=== PATIENT | female | born 2000 | race Caucasian/White ===

== ENCOUNTER 2022-05-19 17:50 | Day surgery (SDC) | payer MEDICAID, SELFPAY ==
[2022-05-19 17:56] VITALS: BP 120/82; PULSE 84; RESP 18; TEMP 36.7; O2SAT 99; BMI 22.7
--- NOTE | 2022-05-19 19:14 | ED.GENADULT ---
HPI - General Adult General Time Seen by Provider: 19:14 Date Seen: 05/19/22 Chief complaint: Chest Pain Stated complaint: Chest pain, not able to keep anything down Time Seen by Provider: 05/19/22 17:58 Source: patient and RN notes reviewed Mode of arrival: ambulatory Limitations: no limitations History of Present Illness HPI narrative: This 21-year-old female is coming in with some epigastric and chest pain that goes into her back that started about 10:00 a.m. last night. She has not had any fevers or chills but states she has felt shaky at times. She has not had any cough or cold symptoms with this. She does have pain with breathing but is not short of breath per se. She does feel that maybe in front she feels a little short of breath. She vomited twice last night she is not really sure if she just ate a greasy taco. She did have a normal bowel movement today, has been passing gas. Has had some nausea. [id number] pain medicines have not helped. She states it is really more pain that bothering her. No known ill contacts, no recent travel. Related Data Home Medications Medication Instructions Recorded Confirmed No Known Home Medications 05/19/22 05/19/22 Allergies Allergy/AdvReac Type Severity Reaction Status Date / Time No Known Drug Allergies Allergy Verified 05/19/22 17:59 Review of Systems Status of ROS: Reports: 10 or more systems reviewed and unremarkable except as noted in History and below Exam Const: Vital Signs, click to edit/add: Vital Signs - 24 hr 05/19/22 17:56 05/19/22 19:55 05/19/22 19:41 Temperature 98.1 F 98.1 F Pulse Rate [Right Pulse Oximeter] 84 Respiratory Rate 18 Blood Pressure [Ri ght Upper Arm] 120/82 Pulse Oximetry 99 99 Oxygen Delivery Me thod Room Air 05/19/22 21:17 Temperature 98.1 F Pulse Rate [Right Pulse Oximeter] Respiratory Rate Blood Pressure [Ri ght Upper Arm] Pulse Oximetry Oxygen Delivery Me thod Documenting provider has reviewed patient's vital signs: yes Common normals: no apparent distress, average body habitus, oriented x3, no limitations and alert General appearance: cooperative, comfortable, well kempt and well developed Other: 21-year-old female who looks mildly uncomfortable, hanging onto an emesis bag. She is pleasant, looks like she does not feel well but is able to sit up and move around without difficulty. HENMT: Common normals: normocephalic, head/scalp atraumatic, hearing grossly normal bilaterally and external ears normal Head and scalp: normocephalic and atraumatic External ear: external ears normal Eye: Common normals: PERRL, EOMs intact bilaterally, conjunctivae normal and no scleral icterus Conjunctiva: conjunctiva(e) normal Pupil: PERRL Neck & C-Spine: Common normals: full ROM, no lymphadenopathy, supple, no meningeal signs, no JVD and thyroid normal Thyroid: thyroid normal Chest: Common normals: inspection of chest normal and palpation of chest normal Resp: Common normals: normal respiratory effort, no retractions and no use of accessory muscles Other: Lung sounds on the left are certainly clear, here diminished breath sounds on the right posteriorly. Cardio: Common normals: no JVD, regular rate, regular rhythm, S1 normal heart sound, S2 normal heart sound, no gallops, no clicks and no murmurs Rate: regular rate Rhythm: regular rhythm Heart sounds: S1 normal and S2 normal GI: Common normals: Normal to inspection, nondistended, normoactive bowel sounds present, soft to palpation, non-tender, no hepatosplenomegaly and no masses Palpation: soft and no hepatosplenomegaly Back & Pelvis: Common normals: thoracic and lumbar spine normal to inspection and no thoracic nor lumbar tenderness Extremity: Common normals: normal to inspection and full ROM Neuro: Common normals: oriented x3 Sensorium/orientation: alert Meningeal signs: no meningeal signs Psych: Appearance: well kempt Course Course Hospital Course: I certainly wonder about a possible pneumothorax with diminished breath sounds on the right. She could be developing a pneumonia as well. Do not hear any crackles. Will also consider other cardial pulmonary etiologies, possible GI etiologies. I am going to give her 15 mg IV Toradol and see if this helps with any of the pain, will give her 4 mg IV Zofran. She is currently hemodynamically stable on her arrival vitals but will have staff monitor her on pulse oximetry. Reevaluation(s) Reevaluation #1: Patient is seen coming back from the bathroom. She states she is feeling better and had asked nursing staff for crackers and something to drink before going to the bathroom. She reports she is still having pain but it is improved. She feels pain from the epigastric area and radiates through into her back. She is having no urinary symptoms. She and I reviewed the elevated white count, would be concerned that we rule out intra-abdominal pathology. She states that she has had episodes of pain before that she thought was more reflux, never this severe and never lasting this long. I am glad to see that she does feel better but do feel that we should look at a CT of her abdomen pelvis with IV contrast just to ensure no developing pathology that could be a surgical abdomen. If the CT is negative, will recommend trial of proton pump inhibitor and outpatient follow-up. Time: 21:26 Reevaluation #2: Reviewed patient's CT scan. Unfortunately she has common bile duct stone as well as the cystic duct stone. White count is elevated in she is still having pain, it is increased again. I do think that she may have some underlying cholecystitis given the pain in the elevated white count. We are going to see if [facility] has any possibility of taking her in transfer to have the ERCP done, if they cannot, will see if we can get her in to have ERCP done there tomorrow and transferred back here. I do not feel obtaining an ultrasound at this point is going to loom changer, 1 could be done tomorrow if necessary. I am going to start IV fluids, give her pain management. I will give her a dose of antibiotics while we try to sort this out. Time: 23:09 Consultations Consultation #1: Have spoken to our surgeon Dr. Anderson regarding case. Reviewed that my plan would be to obtain ultrasound morning as we really have found no place to transfer her. The [email or web address], [place], [facility] are all full and not accepting patients at this time. Nursing staff will look at some of the further out hospital such as [place]. Thus, GI would likely want to the ultrasound prior to transfer per our surgeon. It is likely that this patient will need to be admitted here and we will need to look at a disposition to see if we can get her to ERCP somewhere tomorrow. In the meantime we will initiate antibiotics with Zosyn, have already ordered the IV fluids and some morphine for pain management. We will keep her NPO. Time: 23:21 Consultation #2: Have spoken with the hospitalist at [facility]. They accept patient. We have been unsuccessful finding any facility to transfer to on her list. [facility] stated that they could not arrange for us to do a transfer for ERCP at this time, we would need to call back during day hours. Time: 00:02 Vital Signs Vital signs: Initial Vital Signs Temperature 98.1 F 05/19/22 17:56 Temperature Source Temporal Artery Scan 05/19/22 17:56 Pulse Rate 84 05/19/22 17:56 Respiratory Rate 18 05/19/22 17:56 Blood Pressure 120/82 05/19/22 17:56 Blood Pressure Mean 94 05/19/22 17:56 Blood Pressure Position Sitting 05/19/22 17:56 Pulse Oximetry 99 05/19/22 17:56 Oxygen Delivery Method 05/19/22 17:56 Vital Signs Temperature 98.1 F 05/19/22 17:56 Pulse Rate 84 05/19/22 17:56 Respiratory Rate 18 05/19/22 17:56 Blood Pressure 120/82 05/19/22 17:56 Pulse Oximetry 99 05/19/22 17:56 Oxygen Delivery Method 05/19/22 17:56 Temperature 98.1 F 05/19/22 21:17 Pulse Rate 84 05/19/22 17:56 Respiratory Rate 18 05/19/22 17:56 Blood Pressure 120/82 05/19/22 17:56 Pulse Oximetry 99 05/19/22 19:41 Oxygen Delivery Method 05/19/22 17:56 Medical Decision Making Lab Data Lab results reviewed: Yes I reviewed the patient's lab results Labs: Lab Results 05/19/22 05/19/22 05/19/22 Range/Units 19:50 19:50 19:50 WBC 14.98 H (4.50-11.00) K/uL RBC 5.35 H (4.00-5.20) m/uL Hgb 14.3 (12.0-16.0) gm/dL Hct 44.6 (33.0-51.0) % MCV 83 (80-100) fL MCH 27 (26-34) pg MCHC 32 (32-36) gm/dL RDW Coeff of [place] 12.8 (11.5-15.5) % Plt Count 358 (140-440) K/uL Neut % (Auto) 80.6 H (42.0-72.0) % Lymph % (Auto) 14.1 L (20-44) % [place] % (Auto) 5.1 (0.0-11.0) % Eos % (Auto) 0.0 (0.0-7.0) % Baso % (Auto) 0.1 (0.0-3.0) % Neut # (Auto) 12.10 H (1.7-7.0) K/uL Lymph # (Auto) 2.10 (0.90-2.90) K/uL [place] # (Auto) 0.80 (0.00-0.90) K/UL Eos # (Auto) 0.00 (0.00-0.50) K/uL Baso # (Auto) 0.00 (0.00-0.30) K/uL Sodium 139 (135-149) mmol/L Potassium 3.9 (3.6-5.1) mmol/L Chloride 106 (96-114) mmol/L Carbon Dioxide 22 (20-32) mmol/L BUN 12 (5-24) mg/dL Creatinine 0.4 L (0.5-1.5) mg/dL Estimated Creat Clear 167.88 Estimated GFR 144 ml/min Glucose 113 (60-115) mg/dL Lactate (0.5-1.9) mmol/L Calcium 9.8 (8.4-10.6) mg/dL Total Bilirubin 0.7 (0.1-1.5) mg/dL AST 27 (12-35) U/L ALT 23 (4-35) U/L Alkaline Phosphatase 70 (40-150) U/L Total Protein 8.7 H (6.0-8.3) g/dL Albumin 5.2 H (3.3-5.0) g/dL Lipase (23-300) U/L SARS-CoV-2 (PCR) Negative SARS-CoV-2 (Negative) Influenza Type A (PCR) Negative PCR FLU A (Negative) Influenza Type B (PCR) Negative PCR FLU B (Negative) RSV (PCR) Negative PCR RSV (Negative) POC Troponin I (0.01-0.04) ng/ml 05/19/22 05/19/22 05/19/22 Range/Units 19:50 19:50 19:50 WBC (4.50-11.00) K/uL RBC (4.00-5.20) m/uL Hgb (12.0-16.0) gm/dL Hct (33.0-51.0) % MCV (80-100) fL MCH (26-34) pg MCHC (32-36) gm/dL RDW Coeff of [place] (11.5-15.5) % Plt Count (140-440) K/uL Neut % (Auto) (42.0-72.0) % Lymph % (Auto) (20-44) % [place] % (Auto) (0.0-11.0) % Eos % (Auto) (0.0-7.0) % Baso % (Auto) (0.0-3.0) % Neut # (Auto) (1.7-7.0) K/uL Lymph # (Auto) (0.90-2.90) K/uL [place] # (Auto) (0.00-0.90) K/UL Eos # (Auto) (0.00-0.50) K/uL Baso # (Auto) (0.00-0.30) K/uL Sodium (135-149) mmol/L Potassium (3.6-5.1) mmol/L Chloride (96-114) mmol/L Carbon Dioxide (20-32) mmol/L BUN (5-24) mg/dL Creatinine (0.5-1.5) mg/dL Estimated Creat Clear Estimated GFR ml/min Glucose (60-115) mg/dL Lactate 1.4 (0.5-1.9) mmol/L Calcium (8.4-10.6) mg/dL Total Bilirubin (0.1-1.5) mg/dL AST (12-35) U/L ALT (4-35) U/L Alkaline Phosphatase (40-150) U/L Total Protein (6.0-8.3) g/dL Albumin (3.3-5.0) g/dL Lipase 60 (23-300) U/L SARS-CoV-2 (PCR) (Negative) Influenza Type A (PCR) (Negative) Influenza Type B (PCR) (Negative) RSV (PCR) (Negative) POC Troponin I 0.00 L (0.01-0.04) ng/ml Imaging Data Chest x-ray: Attestation: I have reviewed the pertinent imaging results. My impression: I certainly do not see pneumothorax, no acute infiltrate. Will await Radiology over review as well. Radiologist's impression: Patient: ANNMARIE ALMENDAREZ Facility:?[facility] Patient ID:?[id number] Site Patient ID:?[id number]. Site :?[id number] Study:?XRay Chest -05/19/2022 8:32:29 PM Ordering Physician:?Forest Eaton Final Report: INDICATION: Chest pain. TECHNIQUE: Chest 1 views. COMPARISON: None. FINDINGS: Cardiovascular and mediastinum: Cardiomediastinal silhouette is within normal limits. Lungs and pleural spaces: Lungs are clear. No sign of pleural effusion. No pneumothorax. Bones and soft tissues: No significant findings. IMPRESSION: No acute cardiopulmonary process identified. Dictated by Malou Gann MD @ 05/19/2022 8:33:03 PM (Electronic Signature) CT scan - abdomen: Attestation: I have reviewed the pertinent imaging results. Radiologist's impression: Patient: ANNMARIE ALMENDAREZ Facility:?[facility] Patient ID:?[id number] Site Patient ID:?[id number]. Site :?[id number] Study:?CT Abdomen/Pelvis W ISOVUE 370-05/19/2022 10:43:09 PM Ordering Physician:?Forest Eaton Final Report: INDICATION: Epigastric TECHNIQUE: CT abdomen and pelvis acquired with 58 cc Isovue 370 IV contrast. COMPARISON: None. FINDINGS: Lower chest: The visualized lower lungs are aerated. No pleural or pericardial effusion. ABDOMEN: Liver: Normal enhancement. No focal suspicious hepatic lesions. Gallbladder and biliary: Normal gallbladder without radiopaque stone. Mild prominence of the intra and extrahepatic bile ducts with punctate high attenuation foci within the common bile duct and potentially within the distal-most aspect of the cystic duct, axial images 24-32. Spleen: Normal size and enhancement. Pancreas: Normal enhancement without peripancreatic inflammatory changes or ductal dilatation. Adrenal glands: Normal adrenal glands. Kidneys and ureters: Normal enhancement. No radio-opaque calculi. No hydroureteronephrosis. GI tract: The stomach is relatively decompressed. Normal caliber small and large bowel loops. Normal appendix. Vascular structures: Normal caliber abdominal aorta. Lymph nodes: No lymphadenopathy in the abdomen or pelvis by size criteria. Peritoneum: No free air, free fluid, or focal drainable fluid collection. PELVIS: Genitourinary system: Urinary bladder is decompressed. Appropriately positioned IUD. Bilateral ovarian cysts. SKELETAL STRUCTURES AND SOFT TISSUES: No suspicious lytic or blastic lesions. IMPRESSION: Mild prominence of the intra and extrahepatic bile ducts with punctate high attenuation foci within the common bile duct and potentially within the distal-most aspect of the cystic duct. Findings likely reflect choledocholithiasis and potentially cholelithiasis with stone in the cystic duct. Please note that all CT scans at this facility use dose modulation, iterative reconstruction, and/or weight-based dosing when appropriate to reduce radiation dose to as low as reasonably achievable. Dictated by Indio Hilliard MD @ 05/19/2022 10:55:27 PM (Electronic Signature) ECG Data Attestation: I personally reviewed and interpreted this ECG as follows: (Sinus rhythm with sinus arrhythmia, 73 beats per minute. No acute ischemic change, no no changes concerning for pericarditis. QT corrected 429 milliseconds.) Prior ECG tracings: not available for review Critical Care Time Critical Care Time Critical Care Time: No Discharge Plan Discharge Clinical Impression: Choledocholithiasis, Acute cholecystitis Patient Disposition: Admitted As Inpatient Condition: Unchanged Prescriptions: No Action No Known Home Medications Follow Up/Referrals: Hanna Worley MD [Primary Care Provider] -
[2022-05-19 19:41] VITALS: O2SAT 99
--- NOTE | 2022-05-19 19:41 | CRLHL7_ITS ---
For Patients: As a result of the Cures Act, medical imaging exams and procedure reports are released immediately into your electronic medical record. You may view this report before your referring provider. If you have questions, please contact your health care provider. INDICATION: Chest pain. TECHNIQUE: Chest 1 views. COMPARISON: None. FINDINGS: Cardiovascular and mediastinum: Cardiomediastinal silhouette is within normal limits. Lungs and pleural spaces: Lungs are clear. No sign of pleural effusion. No pneumothorax. Bones and soft tissues: No significant findings. IMPRESSION: No acute cardiopulmonary process identified. Dictated by Malou Gann MD @ 05/19/2022 8:33:03 PM (Electronically Signed)
[2022-05-19 19:55] VITALS: TEMP 36.7
[2022-05-19] MEDS: KETOROLAC 15 MG/ML inj IVP (19:55)
[2022-05-19] MEDS: ONDANSETRON 2 MG/ML inj 4 MG IVP (19:55)
[2022-05-19 20:02] LABS: Lactate* 1.4 mmol/L (0.5-1.9)
[2022-05-19 20:05] LABS: Basophils Percent Auto 0.1 % (0.0-3.0); Hematocrit 44.6 % (33.0-51.0); Hemoglobin* 14.3 gm/dL (12.0-16.0); Immature Granulocytes Pct Auto 0.1 %; Lymphocytes Percent Auto 14.1 % (20-44); Mean Corpuscular HGB Conc 32 gm/dL (32-36); Mean Corpuscular Hemoglobin 27 pg (26-34); Mean Corpuscular Volume 83 fL (80-100); Monocytes Percent Auto 5.1 % (0.0-11.0); Neutrophils Percent Auto 80.6 % (42.0-72.0); Platelet Count* 358 K/uL (140-440); RDW Coefficient of Variation % 12.8 % (11.5-15.5); Red Blood Count 5.35 m/uL (4.00-5.20); White Blood Count* 14.98 K/uL (4.50-11.00)
[2022-05-19 20:11] LABS: Slide Review Reflex No
[2022-05-19 20:19] LABS: Albumin* 5.2 g/dL (3.3-5.0); Chloride* 106 mmol/L (96-114); Potassium* 3.9 mmol/L (3.6-5.1); Sodium* 139 mmol/L (135-149)
[2022-05-19 20:21] LABS: Creatinine* 0.4 mg/dL (0.5-1.5); Est. Creatinine Clearance* 167.88; Estimated Glomerular Filt Rate 144 ml/min
[2022-05-19 20:22] LABS: Alanine Aminotransferase* 23 U/L (4-35); Alkaline Phosphatase* 70 U/L (40-150); Aspartate Amino Transferase* 27 U/L (12-35); Bilirubin Total* 0.7 mg/dL (0.1-1.5); Blood Urea Nitrogen* 12 mg/dL (5-24); Calcium* 9.8 mg/dL (8.4-10.6); Carbon Dioxide* 22 mmol/L (20-32); Glucose* 113 mg/dL (60-115); Total Protein* 8.7 g/dL (6.0-8.3)
[2022-05-19 20:42] LABS: PCR FLU A Negative PCR FLU A (Negative); PCR FLU B Negative PCR FLU B (Negative); PCR RSV Negative PCR RSV (Negative)
[2022-05-19 20:46] LABS: Lipase* 60 U/L (23-300)
[2022-05-19 20:47] LABS: SARS PCR* Negative SARS-CoV-2 (Negative)
[2022-05-19 21:17] VITALS: TEMP 36.7
--- NOTE | 2022-05-19 21:25 | CRLHL7_ITS ---
For Patients: As a result of the Century Cures Act, medical imaging exams and procedure reports are released immediately into your electronic medical record. You may view this report before your referring provider. If you have questions, please contact your health care provider. INDICATION: Epigastric TECHNIQUE: CT abdomen and pelvis acquired with 58 cc Isovue 370 IV contrast. COMPARISON: None. FINDINGS: Lower chest: The visualized lower lungs are aerated. No pleural or pericardial effusion. ABDOMEN: Liver: Normal enhancement. No focal suspicious hepatic lesions. Gallbladder and biliary: Normal gallbladder without radiopaque stone. Mild prominence of the intra and extrahepatic bile ducts with punctate high attenuation foci within the common bile duct and potentially within the distal-most aspect of the cystic duct, axial images 24-32. Spleen: Normal size and enhancement. Pancreas: Normal enhancement without peripancreatic inflammatory changes or ductal dilatation. Adrenal glands: Normal adrenal glands. Kidneys and ureters: Normal enhancement. No radio-opaque calculi. No hydroureteronephrosis. GI tract: The stomach is relatively decompressed. Normal caliber small and large bowel loops. Normal appendix. Vascular structures: Normal caliber abdominal aorta. Lymph nodes: No lymphadenopathy in the abdomen or pelvis by size criteria. Peritoneum: No free air, free fluid, or focal drainable fluid collection. PELVIS: Genitourinary system: Urinary bladder is decompressed. Appropriately positioned IUD. Bilateral ovarian cysts. SKELETAL STRUCTURES AND SOFT TISSUES: No suspicious lytic or blastic lesions. IMPRESSION: Mild prominence of the intra and extrahepatic bile ducts with punctate high attenuation foci within the common bile duct and potentially within the distal-most aspect of the cystic duct. Findings likely reflect choledocholithiasis and potentially cholelithiasis with stone in the cystic duct. Please note that all CT scans at this facility use dose modulation, iterative reconstruction, and/or weight-based dosing when appropriate to reduce radiation dose to as low as reasonably achievable. Dictated by Indio Hilliard MD @ 05/19/2022 10:55:27 PM (Electronically Signed)
--- NOTE | 2022-05-19 23:19 | US_ITS ---
Patient: ANNMARIE ALMENDAREZ Facility:?[facility] Patient ID:?[id number] Site Patient ID:?[id number]. Site :?2000 Study:?US-Abdomen -05/20/2022 12:26:56 AM Ordering Physician:?UNKNOWN UNKNOWN Final Report: INDICATION: Abdominal gallbladder pain TECHNIQUE: Ultrasound abdomen limited. Sonographic images of the gallbladder and biliary tree were obtained using mari-scale and color Doppler images. COMPARISON: CT 05/19/2022 FINDINGS: Liver: The liver parenchyma is normal in echotexture. Gallbladder: Multiple echogenic, shadowing gallstones are seen clustered in the gallbladder neck. The gallbladder wall is normal in appearance. No pericholecystic fluid is present. No sonographic Malin?s sign is present. Common bile duct: 5 mm. There is a 1 cm echogenic focus present within the common bile duct, consistent with choledocholithiasis. Vascular: Proximal abdominal aorta and IVC are not demonstrated. IMPRESSIONS: 1. Multiple echogenic, shadowing gallstones are seen clustered in the gallbladder neck. 2. There is a 1 cm echogenic focus present within the common bile duct, consistent with choledocholithiasis. Dictated by Eze Montana MD @ 05/20/2022 12:49:02 AM Dictated by: Eze Montana MD @ 05/20/2022 00:49:11 Signed by:?Eze Montana MD @05/20/2022 12:49:11 AM (Electronic Signature)
[2022-05-19] MEDS: PIPERACILLIN/TAZOBACTAM 3.375 GM in 0.9 % SODIUM CHLORIDE Mini-bag 100 ML IVPB (23:55)
[2022-05-19] MEDS: MORPHINE 2 MG/ML inj IVP (23:56)
[2022-05-20] VITALS (21 sets, daily range): BP systolic 85–124; BP diastolic 49–79; PULSE 54–83; RESP 10–18; TEMP 35.7–37.2; O2SAT 94–100; BMI 20.1
--- NOTE | 2022-05-20 01:28 | PM.IMCN1 ---
Date of Consult Consult date: 05/20/22 Primary Care Provider: Hanna Worley MD Consult Narrative Narrative: Erin Miller is a 21 year old female [facility] Medical History (Updated 05/20/22 @ 00:42 by Sekou Bingham RN) No significant past medical history Surgical History (Updated 05/20/22 @ 00:42 by Sekou Bingham RN) No significant past surgical history Social History Smoking Status: Never smoker Do you use any of these nicotine containing products: None Second hand tobacco smoke exposure: No How often do you have a drink containing alcohol: never How often do you have six or more drinks on one occasion: Never AUDIT-C Alcohol total score: 0 Non-prescribed substance use: denies use Meds Home Medications and Allergies Home Medications Medication Instructions Recorded Confirmed Type No Known Home Medications 05/19/22 05/19/22 History Allergies Allergy/AdvReac Type Severity Reaction Status Date / Time No Known Drug Allergies Allergy Verified 05/19/22 17:59 Exam Const: Vital Signs, click to edit/add: Vital Signs - 24 hr 05/19/22 17:56 05/19/22 19:55 05/19/22 19:41 Temperature 98.1 F 98.1 F Pulse Rate Pulse Rate [Right Pulse Oximeter] 84 Respiratory Rate 18 Blood Pressure Blood Pressure [Ri ght Upper Arm] 120/82 Pulse Oximetry 99 99 Oxygen Delivery Me thod Room Air 05/19/22 21:17 05/20/22 00:44 05/20/22 00:44 Temperature 98.1 F 98.1 F 98.2 F Pulse Rate 74 Pulse Rate [Right Pulse Oximeter] 74 Respiratory Rate 18 16 Blood Pressure 124/68 Blood Pressure [Ri ght Upper Arm] 124/68 Pulse Oximetry 99 99 Oxygen Delivery Me thod Room Air Room Air 05/20/22 00:46 05/20/22 01:10 Temperature 98.2 F Pulse Rate Pulse Rate [Right Pulse Oximeter] 74 Respiratory Rate 16 16 Blood Pressure Blood Pressure [Ri ght Upper Arm] 124/68 Pulse Oximetry 99 Oxygen Delivery Me thod Room Air Labs Labs: Short CBC 05/19/22 Range/Units 19:50 WBC 14.98 H (4.50-11.00) K/uL Hgb 14.3 (12.0-16.0) gm/dL Hct 44.6 (33.0-51.0) % Plt Count 358 (140-440) K/uL BMP 05/19/22 19:50 Sodium 139 Potassium 3.9 Chloride 106 Carbon Dioxide 22 BUN 12 Creatinine 0.4 L Glucose 113 Calcium 9.8 Liver Function 05/19/22 Range/Units 19:50 Total Bilirubin 0.7 (0.1-1.5) mg/dL AST 27 (12-35) U/L ALT 23 (4-35) U/L Alkaline Phosphatase 70 (40-150) U/L Albumin 5.2 H (3.3-5.0) g/dL Assessment and Plan Assessment and plan (1) Acute cholecystitis: Status: Acute Plan [facility] Hospitalist CONSULTATION NOTE: Reason for consult: Right upper quadrant pain, concern for cholecystitis HPI: Patient is a pleasant 21-year-old female without any significant past medical history presents for 2 days of worsening abdominal pain. She is also had loss of appetite and some nausea and vomiting. She has had at least 3 episodes of vomiting. She has not had any diarrhea. She did not have any fevers or chills she is aware. She denies headache or lightheadedness. The pain does radiate up into her chest and back at times. She also does have a little bit of shortness of breath as she is unable to take deep inspiration secondary to pain. Patient does not have any allergies. She does not smoke cigarettes or use nicotine. She drinks alcohol around once a month. She does not use any recreational drugs. She is unaware of any family history of gallstones or gallbladder disease. Exam (performed via interactive video with assistance of bedside nurse): General: Alert, cooperative, no acute distress HEENT: Pupils reported ERRL, oral mucosa pink and moist without erythema Lungs: Clear to auscultation bilaterally without crackle or wheeze CV: Regular rate and rhythm without loud murmur rub or gallop Abd: Tender to palpation bilateral upper quadrants Ext: No pitting edema noted Skin: No rashes, bruises or lesions appreciated on gross visualization of exposed skin Past medical, surgical and social history reviewd in EMR. Assessment and Plan: 1. Abdominal pain concern for cholecystitis Patient is a pleasant 21-year-old female admitted for abdominal pain and ductal dilation. No gallstones were identified but gallbladder ultrasound is pending. There was noted ductal dilation on CT scan. Zosyn was started in the ER and will be continued in case patient is having early cholecystitis. Patient would benefit from ERCP, but no facility with ERCP capable debilities had any available beds. PRNs will be available for pain and nausea. Patient is full code. Thank you for including Adi Pichardoist in the patients care. This service is available for further assistance as requested by your care team by calling [phone].
[2022-05-20] MEDS: PIPERACILLIN/TAZOBACTAM 3.375 GM in 0.9 % SODIUM CHLORIDE Mini-bag 100 ML IVPB ×2 (06:00→13:40)
[2022-05-20] MEDS: 0.9 % SODIUM CHLORIDE 250 ml IV (06:01)
--- NOTE | 2022-05-20 06:40 | PC.NURSE ---
2307: pt to floor at 0030. No c/o pain. No c/o nausea. VSS. LLQ tender to palpation.
[2022-05-20] MEDS: LACTATED RINGERS 1000 ML 500 ML IV ×2 (08:00→15:00)
--- NOTE | 2022-05-20 08:47 | P.GSCN_ITS ---
History of Present Illness Consult details Date Seen: 05/20/22 Consult date: 05/20/22 Narrative: 21-year-old female admitted to the hospital with choledocholithiasis and I was asked by Dr. Oreilly to see her in consultation. Patient presented to the emergency room yesterday. She states that her upper abdominal pain and chest pain started on Monday evening after eating dinner. Patient had tacos and donuts for dinner. The pain was persistent and sharp. Patient had similar episodes of pain that were milder in the past. She was seen twice in the emergency room for similar symptoms and her symptoms were attributed to acid reflux. Patient vomited 3 times yesterday. She was passing gas yesterday and had a bowel movement yesterday as well. In the emergency room she was found to have elevated WBC at 14.6. Her liver function tests were normal and her lipase was normal. An abdominal CT was obtained that showed normal appearance of the gallbladder with a stone in the common bile duct with prominent intra and extrahepatic bile duct dilatation. There was also a small stone in the mid distal cystic duct. Patient also had a gallbladder ultrasound that showed gallbladder wall of 3 mm. The common bile duct size varied from 4-10 mm. There was no evidence of cholecystic fluid. 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 Highest level of school completed/degree received: high school graduate Smoking Status: Never smoker Do you use any of these nicotine containing products: None Second hand tobacco smoke exposure: No How often do you have a drink containing alcohol: monthly or less How often do you have six or more drinks on one occasion: Never AUDIT-C Alcohol total score: 1 Non-prescribed substance use: denies use Caffeine: No service: No Meds Home Medications and Allergies Home Medications Medication Instructions Recorded Confirmed Type No Known Home Medications 05/19/22 05/19/22 History Allergies Allergy/AdvReac Type Severity Reaction Status Date / Time No Known Drug Allergies Allergy Verified 05/19/22 17:59 Exam Narrative: Exam Narrative: General appearance: Alert, cooperative, and in no distress Pulmonary: Chest symmetric, lungs clear bilaterally Cardiovascular Heart: Regular rate and rhythm, S1, S2, no murmurs/rubs/gallops Gastrointestinal Abdominal: soft, not distended, tender to palpation in epigastrium and right upper quadrant with negative Malin sign. Skin: Normal skin color, texture, and turgor. No rashes or lesions. Psychiatric: Alert, cooperative, normal affect. Const: Vital Signs, click to edit/add: Vital Signs - 24 hr 05/19/22 17:56 05/19/22 19:55 05/19/22 19:41 Temperature 98.1 F 98.1 F Pulse Rate Pulse Rate [Pulse Oximeter] Pulse Rate [Right Pulse Oximeter] 84 Respiratory Rate 18 Blood Pressure Blood Pressure [Le ft Arm] Blood Pressure [Ri ght Upper Arm] 120/82 Pulse Oximetry 99 99 Oxygen Delivery Me thod Room Air 05/19/22 21:17 05/20/22 00:44 05/20/22 00:44 Temperature 98.1 F 98.1 F 98.2 F Pulse Rate 74 Pulse Rate [Pulse Oximeter] Pulse Rate [Right Pulse Oximeter] 74 Respiratory Rate 18 16 Blood Pressure 124/68 Blood Pressure [Le ft Arm] Blood Pressure [Ri ght Upper Arm] 124/68 Pulse Oximetry 99 99 Oxygen Delivery Me thod Room Air Room Air 05/20/22 00:46 05/20/22 01:10 05/20/22 01:10 Temperature 98.2 F 97.7 F Pulse Rate Pulse Rate [Pulse Oximeter] 70 Pulse Rate [Right Pulse Oximeter] 74 Respiratory Rate 16 16 16 Blood Pressure Blood Pressure [Le ft Arm] 109/68 Blood Pressure [Ri ght Upper Arm] 124/68 Pulse Oximetry 99 99 Oxygen Delivery Me thod Room Air Room Air Results Labs Labs: Abnormal lab results 05/19/22 05/19/22 05/19/22 Range/Units 19:50 19:50 19:50 WBC 14.98 H (4.50-11.00) K/uL RBC 5.35 H (4.00-5.20) m/uL Neut % (Auto) 80.6 H (42.0-72.0) % Lymph % (Auto) 14.1 L (20-44) % Neut # (Auto) 12.10 H (1.7-7.0) K/uL Creatinine 0.4 L (0.5-1.5) mg/dL Total Protein 8.7 H (6.0-8.3) g/dL Albumin 5.2 H (3.3-5.0) g/dL POC Troponin I 0.00 L (0.01-0.04) ng/ml Diabetes panel 05/19/22 Range/Units 19:50 Sodium 139 (135-149) mmol/L Potassium 3.9 (3.6-5.1) mmol/L Chloride 106 (96-114) mmol/L Carbon Dioxide 22 (20-32) mmol/L BUN 12 (5-24) mg/dL Creatinine 0.4 L (0.5-1.5) mg/dL Glucose 113 (60-115) mg/dL Calcium 9.8 (8.4-10.6) mg/dL AST 27 (12-35) U/L ALT 23 (4-35) U/L Alkaline Phosphatase 70 (40-150) U/L Total Protein 8.7 H (6.0-8.3) g/dL Albumin 5.2 H (3.3-5.0) g/dL Calcium panel 05/19/22 Range/Units 19:50 Calcium 9.8 (8.4-10.6) mg/dL Albumin 5.2 H (3.3-5.0) g/dL Pituitary panel 05/19/22 Range/Units 19:50 Sodium 139 (135-149) mmol/L Potassium 3.9 (3.6-5.1) mmol/L Chloride 106 (96-114) mmol/L Carbon Dioxide 22 (20-32) mmol/L BUN 12 (5-24) mg/dL Creatinine 0.4 L (0.5-1.5) mg/dL Glucose 113 (60-115) mg/dL Calcium 9.8 (8.4-10.6) mg/dL Adrenal panel 05/19/22 Range/Units 19:50 Sodium 139 (135-149) mmol/L Potassium 3.9 (3.6-5.1) mmol/L Chloride 106 (96-114) mmol/L Carbon Dioxide 22 (20-32) mmol/L BUN 12 (5-24) mg/dL Creatinine 0.4 L (0.5-1.5) mg/dL Glucose 113 (60-115) mg/dL Calcium 9.8 (8.4-10.6) mg/dL Total Bilirubin 0.7 (0.1-1.5) mg/dL AST 27 (12-35) U/L ALT 23 (4-35) U/L Alkaline Phosphatase 70 (40-150) U/L Total Protein 8.7 H (6.0-8.3) g/dL Albumin 5.2 H (3.3-5.0) g/dL All other labs normal. Assessment and Plan Assessment and plan (1) Choledocholithiasis: Status: Acute Plan 21-year-old female admitted to the hospital with abdominal pain that is most likely due to choledocholithiasis. I discussed with the patient and her fiance her laboratory and imaging findings. Patient's liver function tests are actually normal. However, she has dilated common bile duct on the ultrasound with a stone visualized on the ultrasound and CT. That dilation of the common bile duct is up to 10 mm. I think this patient would benefit from ERCP first followed by laparoscopic cholecystectomy. Attempts were made at transferring the patient from the emergency room yesterday however there are no beds available at tertiary centers. I would recommend working on transfer for ERCP. Patient could come back after her ERCP and we would plan laparoscopic cholecystectomy. For now will continue NPO, IV fluids, and IV antibiotics.
--- NOTE | 2022-05-20 09:19 | CRLHL7_ITS ---
For Patients: As a result of the Century Cures Act, medical imaging exams and procedure reports are released immediately into your electronic medical record. You may view this report before your referring provider. If you have questions, please contact your health care provider. Indication: Abdominal pain and common duct stone seen on ultrasound. Technique: Multiplanar multisequence images were obtained with heavily weighted T2 sequences for the MRCP. Comparison: Abdomen and pelvis CT 05/19/2022 and right upper quadrant ultrasound 05/20/2022 Findings: Biliary: The gallbladder is distended with cholelithiasis, gallbladder wall thickening as well as pericholecystic edema note is made of a markedly tortuous cystic duct with numerous stones within the cystic duct as well as the neck of the gallbladder (series 14, image 51). The common duct measures 3 millimeters with no choledocholithiasis seen. Liver: Unremarkable. Pancreas: Unremarkable. Spleen: Unremarkable. Adrenal glands: Unremarkable. Kidneys: Unremarkable. Bowel: Unremarkable. Impression: 1. Cholelithiasis with gallbladder wall thickening and pericholecystic edema consistent with acute cholecystitis. 2. Normal common duct without choledocholithiasis. Notably, the cystic duct is quite redundant with multiple stones throughout the cystic duct and neck of the gallbladder. Considering the prior studies, the choledocholithiasis questioned on the prior examination represented stones within a tortuous, dilated cystic duct. Results called to Dr. Oreilly at 1257 on 05/20/2022 Dictated by Alex Rios MD @ 05/20/2022 12:58:07 PM (Electronically Signed)
[2022-05-20] MEDS: LACTATED RINGERS 1000 ML 1,000 ML 100 ML IV ×3 (14:32→19:41)
--- NOTE | 2022-05-20 14:39 | P.IMHP_ITS ---
Hospitalist- H&P: HPI History of Present Illness Date Seen: 05/20/22 Chief complaint: Chest pain, not able to keep anything down Narrative: Erin Miller is a 21 year old female admitted to the hospital with epigastric pain radiating straight to her back starting Monday night, 2 days ago. Pain persisted so she came to the emergency room last night for evaluation. She has had vomiting. She has eaten very little in the last 2 days. No change in her stools. No fever. No shortness of breath. Evaluation showed that she had gallstones. There was concern over a common duct stone as well. Attempts were made to transfer her for ERCP or unsuccessful. Further evaluation here included MRCP which showed no common duct stone but multiple gallstones including in the cystic duct and evidence of cholecystitis. She was seen in consultation by Dr. Anderson. She had a previous episodes similar to this a year ago that was diagnosed as reflux. He has otherwise not had significant ongoing problems with epigastric pain. Review of Systems Narrative: She reports no other health concerns recently. [facility] Medical History No significant past medical history Surgical History No significant past surgical history Social History (Updated 05/20/22 @ 14:43 by Marcelo Oreilly MD) Narrative: Family history: No family history of problems with bleeding, clotting or difficulties with anesthesia. Her father has diabetes mellitus. Her younger sister had leukemia. As a sequelae of her leukemia treatment she developed heart failure and received a heart transplant. She does not smoke. She drinks alcohol twice a month. She has no recreational drug use. Her fiancee, Benton, is healthcare power of traffic law attorney. Code status is full. 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 Highest level of school completed/degree received: high school graduate Smoking Status: Never smoker Do you use any of these nicotine containing products: None Second hand tobacco smoke exposure: No How often do you have a drink containing alcohol: monthly or less How often do you have six or more drinks on one occasion: Never AUDIT-C Alcohol total score: 1 Non-prescribed substance use: denies use Caffeine: No service: No Meds Home Medications and Allergies Home Medications Medication Instructions Recorded Confirmed Type No Known Home Medications 05/19/22 05/19/22 History Allergies Allergy/AdvReac Type Severity Reaction Status Date / Time No Known Drug Allergies Allergy Verified 05/19/22 17:59 Exam Narrative: Exam Narrative: She is alert and appears in no distress. Eyes normal. Oropharynx normal. Neck is supple without mass or adenopathy. Respirations are clear to auscultation. Cardiovascular: S1, S2, regular rate and rhythm. No murmur gallop or rub. Abdomen: Bowel sounds active. Abdomen is soft with mild right upper quadrant tenderness. No mass. No peritonitis. Extremities without edema. Good peripheral pulses. Intact sensation. Good capillary refill. No edema. Const: Vital Signs, click to edit/add: Vital Signs - 24 hr 05/19/22 17:56 05/19/22 19:55 05/19/22 19:41 Temperature 98.1 F 98.1 F Pulse Rate Pulse Rate [Pulse Oximeter] Pulse Rate [Right Pulse Oximeter] 84 Respiratory Rate 18 Blood Pressure Blood Pressure [Le ft Arm] Blood Pressure [Ri ght Upper Arm] 120/82 Pulse Oximetry 99 [facility] 05/[facility]/22 21:17 05/20/22 00:44 05/20/22 00:44 Temperature 98.1 F 98.1 F 98.2 F Pulse Rate 74 Pulse Rate [Pulse Oximeter] Pulse Rate [Right Pulse Oximeter] 74 Respiratory Rate 18 16 Blood Pressure 124/68 Blood Pressure [Le ft Arm] Blood Pressure [Ri ght Upper Arm] 124/68 Pulse Oximetry 99 99 [facility] Room Air 05/20/22 00:46 05/20/22 01:10 05/20/22 01:10 Temperature 98.2 F 97.7 F Pulse Rate Pulse Rate [Pulse Oximeter] 70 Pulse Rate [Right Pulse Oximeter] 74 Respiratory Rate 16 16 16 Blood Pressure Blood Pressure [Le ft Arm] 109/68 Blood Pressure [Ri ght Upper Arm] 124/68 Pulse Oximetry 99 99 [facility] Room Air 05/20/22 07:45 05/20/22 07:45 05/20/22 11:15 Temperature 97 F L 97.7 F Pulse Rate Pulse Rate [Pulse Oximeter] 79 79 83 Pulse Rate [Right Pulse Oximeter] Respiratory Rate 16 16 16 Blood Pressure Blood Pressure [Le ft Arm] 104/79 98/65 Blood Pressure [Ri ght Upper Arm] Pulse Oximetry 98 97 Oxygen Delivery Me thod Room Air Room Air Documenting provider has reviewed patient's vital signs: yes Hospitalist - H&P: Result Labs Labs: Short CBC 05/19/22 Range/Units 19:50 WBC 14.98 H (4.50-11.00) K/uL Hgb 14.3 (12.0-16.0) gm/dL Hct 44.6 (33.0-51.0) % Plt Count 358 (140-440) K/uL BMP 05/19/22 19:50 Sodium 139 Potassium 3.9 Chloride 106 Carbon Dioxide 22 BUN 12 Creatinine 0.4 L Glucose 113 Calcium 9.8 Liver Function 05/19/22 Range/Units 19:50 Total Bilirubin 0.7 (0.1-1.5) mg/dL AST 27 (12-35) U/L ALT 23 (4-35) U/L Alkaline Phosphatase 70 (40-150) U/L Albumin 5.2 H (3.3-5.0) g/dL Assessment and Plan Assessment and plan (1) Acute cholecystitis: Problem comment: Abdomen and pelvis CT, ultrasound show gallstones and possible common duct stone. MRCP confirms no common duct stone and no common duct dilation. Plan laparoscopic cholecystectomy Status: Acute Plan Laparoscopic cholecystectomy. Total time spent today is 75 minutes, 50 minutes in coordination of care with imaging and other specialists and in discussing with patient and fiancee diagnosis and management of cholecystitis
--- NOTE | 2022-05-20 14:53 | PC.NURSE ---
VSS AND AFEBRILE. PATIENT HAS DENIED PAIN OR N/V. NPO PRIOR TO SURGERY. BOWEL SOUNDS ACTIVE AND PATIENT IS PASSING GAS. PATIENT REPORTS LAST MENSTRUAL CYCLE WAS LAST MONTH BUT SHE IS ON CONTROL AND HER MENSES HAS BEEN ERRATIC. MD UPDATED AND PLAN TO HAVE SERUM HCG DRAWN PRIOR TO SURGERY.
[2022-05-20 15:55] LABS: HCG Qualitative Serum* Negative (Negative)
[2022-05-20] MEDS: CEFAZOLIN 1 GM inj IVP (17:12)
--- NOTE | 2022-05-20 17:17 | CRLHL7_ITS ---
For Patients: As a result of the Century Cures Act, medical imaging exams and procedure reports are released immediately into your electronic medical record. You may view this report before your referring provider. If you have questions, please contact your health care provider. INDICATION: Cholecystectomy. Intraoperative cholangiogram. TECHNIQUE: Fluoroscopic guided intraoperative cholangiogram. COMPARISON: Correlation is made with an abdomen ultrasound May 20, 2022. Correlation is made with an abdomen MRI May 20, 2022. FINDINGS: Two spot images were obtained of the right upper quadrant at the time of a cholecystectomy and intraoperative cholangiogram. This is an extremely limited study. There appears to be opacification of the cystic duct with filling defects indicating stones. These were described on the MRI May 20, 2022. Surgical clips right upper quadrant from a cholecystectomy. Probable extravasation of contrast along the undersurface of the liver. Clinical correlation and further imaging evaluation may be required. 55.1 seconds fluoroscopy time utilized. IMPRESSION: 1. Very limited intraoperative examination. 2. 55.1 seconds fluoroscopy time utilized intraoperatively. 3. Filling defects within the cystic duct compatible with stones. Please see abdominal MRI May 20, 2022. 4. Extravasation of contrast along the undersurface of the liver. Dictated by Hemal Seaman MD @ 05/21/2022 8:55:15 AM (Electronically Signed)
[2022-05-20] MEDS: BUPIVACAINE 0.5% 30 ML 10 ML INJECTION (17:24)
[2022-05-20] MEDS: LIDOCAINE 0.5%-EPI 1:200,000 50 ML VIAL 10 ML INJECTION (17:24)
[2022-05-20] MEDS: IOPAMIDOL 50 ML VIAL INJECTION (18:19)
--- NOTE | 2022-05-20 19:32 | P.GSOP_ITS ---
Operative Note Date of procedure: 05/20/22 Pre-op diagnosis: 1. Symptomatic cholelithiasis with possible choledocholithiasis. 2. Acute cholecystitis. Post-op diagnosis: 1. Acute cholecystitis with gallbladder hydrops. 2. Tortuous cystic duct containing multiple stones. Type of Procedure: 1. Laparoscopic cholecystectomy with intraoperative cholangiogram. Indications: 21-year-old female was admitted to the hospital with right upper quadrant pain that started 2 days ago. Patient had vomiting but no nausea. Patient had similar episodes in the past that resolved spontaneously. In the emergency room patient was found to have minimally elevated WBC. An abdominal CT was obtained that showed possible stone in the common bile duct and mid cystic duct. A gallbladder ultrasound was obtained that showed that patient's common bile duct was dilated up to 10 mm and there were stones in the cystic duct. However patient's liver function tests were normal. MRCP was obtained next that showed no choledocholithiasis. The cystic duct was tortuous and redundant with multiple stones in the cystic duct as well as acute cholecystitis. On clinical exam patient had tenderness to palpation in epigastrium and right upper quadrant with negative Malin sign. Given patient's clinical history and her physical exam, acute cholecystitis, biliary colic and possible choledocholithiasis were suspected, and laparoscopic cholecystectomy with intraoperative cholangiogram was recommended. The procedure was discussed in detail. The risks associated procedure including infection, bleeding, injury to intra-abdominal organs, and possible need for future ERCP were all discussed with the patient, and patient agreed to proceed. Procedure Description: After discussing the risks and benefits of the procedure, the patient signed informed consent.? The operative site was marked and the patient was brought to the operating room and placed on the operating table in supine position.? Care was taken to pad the patient's pressure points.?? The patient was then intubated by anesthesia.?? The operative site was then prepped and draped in the usual sterile fashion.? A time-out was then performed. A 5-mm laparoscopy port was placed in the left upper quadrant guided by a 5-mm laparoscope placed into a translucent trochar. The abdominal wall layers were very difficult to divide and decision was made to proceed with Hinojosa technique. Local anesthetic was injected inferior to the umbilicus. The skin incision was made with a scalpel. The anterior fascia was grasped with Rod clamps and divided with scissors. Posterior sheath and peritoneum were very thick and were grasped with Aby clamps. These layers were divided with scissors. There was some difficulty accessing the abdomen here because of the thickness of posterior sheath. Once the abdomen was entered, 5 mm port was placed and abdomen was insufflated with carbon dioxide. Left upper quadrant was examined and no peritoneal violation was seen. Additional 5 mm port was then placed in the left upper quadrant under direct visualization. A U-stitch was placed in the anterior fascia of the infraumbilical incision with 0-0 Vicryl suture for future fascial closure. The infraumbilical port was then switched to a 12 mm port. Two additional 5 mm ports were placed on the right side of the abdomen under direct visualization. The camera was then changed to 10 mm 30-degree scope and placed into the abdomen through the 10 mm port. The gallbladder was identified and then vascular veil was covering the gallbladder. This was divided with hook cautery. The duodenum was closely adjacent to the gallbladder infundibulum and care was taken not to injure the duodenum. The fundus grasped and retracted cephalad. The infundibulum was grasped and retracted laterally, exposing the peritoneum overlying the triangle of Calot. This was then divided and exposed in a blunt fashion and with hook cautery. Common bile duct was not identified but care was taken not to injure it. The cystic duct was clearly identified and bluntly dissected circumferential ly. The cystic duct was dilated and I stayed close to the infundibulum to avoid injury to the common bile duct. Cystic artery was identified and tissues around it were dissected off. The cystic artery and the cystic duct were clearly going into the gallbladder. The cystic artery was then doubly ligated with surgical clips on the patient's side and singly clipped on the gallbladder side and divided. The cystic duct was clipped with a 5 mm clip on the gallbladder side and a small ductotomy was made with laparoscopic Metzenbaum scissors. An additional 5 mm port was placed under direct visualization in the right upper quadrant. A blue introducer from an Arrow cholangiogram kit was placed through the port and a cholangiocatheter was placed through the introducer and directed into the cystic duct. The advancement of cholangiocatheter was difficult and a small stone was visualized in the cystic duct. The stone was milked out of the cystic duct and the cholangiocatheter was then advanced into the cystic duct. The catheter was then clipped with a single 5 mm clip at the ductotomy site to secure it in place. Fluoroscopy was brought onto the field and Optiray 300 contrast dye was injected through the cholangiocatheter. Small portion of the cystic duct was visualized with multiple stones in a row and very tortuous cystic duct. The contrast did not empty into the duodenum. Decision was made not to explore the cystic duct given its tortuousity and the number of small stones within the cystic duct. At this time 5 mm clip on the cystic duct and cholangiocatheter were removed and the cholangiocatheter was removed from the cystic duct. The duct was then clipped with two 5 mm clips on the patient's side just below the ductotomy. The cystic duct was then divided at the level of ductotomy. The clips did not go all the way across the cystic duct stump. 0-0 PDS endoloop was used and placed just proximal to the cystic duct stump clips. The gallbladder was dissected from the liver bed in retrograde fashion using hookcautery. Moderate amount of edema was noted in the wall of the gallbladder. Near the gallbladder fundus, a small opening was made in the gallbladder during the dissection. Clear bile came out suggesting hydrops gallbladder. The gallbladder was placed into an Endo-Catch bag and removed through the infraumbilical incision. Surgical site was examined for bleeding. No bleeding was seen in the surgical field. The previously placed Vicryl stitch was tied at the infraumbilical incision. This incision was examined intra-abdominally and some bleeding was noted from the peritoneal edge and preperitoneal fat. This was controlled with hook cautery. Pneumoperitoneum was completely reduced after viewing removal of the trocars under direct vision. The skin was then closed with 4-0 monocryl and steristrips were applied. Instrument, sponge, and needle counts were correct at closure and at the conclusion of the case. The patient was transferred to PACU in stable condition.? Findings: Gallbladder hydrops, acute cholecystitis, tortuous cystic duct containing multiple stones Anesthesia: GETA Surgeon: Hector Anderson MD Estimated blood loss (mL): 5 Specimen: Gallbladder Condition: stable Disposition: PACU
--- NOTE | 2022-05-20 19:33 | W.ANESCHARGE ---
Anesthesia Charges Start Date/Time Anesthesia Start Date: 05/20/22 Anesthesia Start Time: 17:00 Stop Date/Time Anesthesia Stop Date: 05/20/22 Anesthesia Stop Time: 19:33 Summary Emergency: Yes
--- NOTE | 2022-05-20 19:48 | PC.NURSE ---
Nursing Care Hours: [id number] Pt this shift calm and cooperative with cares, alert and oriented, and independent in room. No c/o pain, N/V. IV patent. VSS. Prepped for surgery, taken down at 1700.
[2022-05-20] MEDS: HYDROmorphone 0.5 mg/0.5 ml inj IVP ×2 (20:26→23:11)
[2022-05-20] MEDS: SODIUM CHLORIDE 0.9 % (FLUSH) 10 ML SYRINGE IVF (20:27)
[2022-05-20] MEDS: SODIUM CHLORIDE 0.9 % (FLUSH) 10 ML SYRINGE 5 ML IVF (23:11)
[2022-05-21] VITALS: BP 97/59; PULSE 60; RESP 16; TEMP 36.9; O2SAT 98
[2022-05-21 01:00] VITALS: BP 91/50; PULSE 65; RESP 16; TEMP 36.9; O2SAT 96
[2022-05-21 03:00] VITALS: RESP 16
[2022-05-21] MEDS: HYDROCODONE-ACETAMIN 5-325 MG 1 TAB PO ×2 (06:31→09:53)
--- NOTE | 2022-05-21 06:49 | PC.NURSE ---
END OF SHIFT NOTE: PT PLEASANT AND COOPERATIVE WITH CARES. PT AMBULATES WITH SBA TO BATHROOM. ABDOMINAL LAP SITES x5 SCANT DRAINAGE/INTACT. PT TOLERATING CLEAR LIQUIDS. DIET ADVANCED TOLERATED PT TOLERATED APPLE SAUCE THIS MORNING. VSS ON RA; AFEBRILE. DENIES CP, SOB, N/V. RATES ABDOMINAL PAIN 2-9/10 WITH RELIEF FROM ICE AND PRN PAIN MEDS. PT C/O BACK ACHE THIS MORNING; PT REPOSITIONED. ?
[2022-05-21 07:00] VITALS: BP 95/58; PULSE 65; RESP 16; RESP 18; TEMP 36.4; O2SAT 97
[2022-05-21 07:36] LABS: Albumin* 3.7 g/dL (3.3-5.0)
[2022-05-21 07:38] LABS: Bilirubin Direct* 0.1 mg/dL (0.0-0.5); Bilirubin Total* 0.6 mg/dL (0.1-1.5)
[2022-05-21 07:39] LABS: Alanine Aminotransferase* 20 U/L (4-35); Alkaline Phosphatase* 49 U/L (40-150); Aspartate Amino Transferase* 28 U/L (12-35); Total Protein* 6.4 g/dL (6.0-8.3)
--- NOTE | 2022-05-21 10:00 | PM.DS1 ---
DS: Providers Provider Date Seen: 05/21/22 Primary care physician: Hanna Worley MD Attending Physician on discharge: Hector Anderson MD DS: Diagnosis Discharge Diagnosis (1) Acute cholecystitis: Status: Acute DS: Summary Hospital Course Hospital Course: 21-year-old female was admitted to the hospital with biliary colic, possible choledocholithiasis, and acute cholecystitis. Patient underwent MRCP that did not show a common bile duct stone. She was found to have a very tortuous redundant cystic duct full of stones. Patient underwent cholecystectomy with intraoperative cholangiogram. She was found to have hydrops gallbladder with inability to advanced cholangiogram into the cystic duct due to multiple stones. The cholecystectomy was completed. I discussed her case with Gastroenterology at [facility] and they did not recommend pursuing ERCP for cystic duct stones. The stones may stay in the cystic duct for ever. Patient did well postoperatively. Her liver function tests remained normal. She was tolerating clears. Time Spent with Patient Time attestation: Total time spent providing and/or coordinating discharge services: Exam Const: Vital Signs, click to edit/add: Vital Signs - 24 hr 05/20/22 11:15 05/20/22 15:00 05/20/22 15:00 Temperature 97.7 F Pulse Rate Pulse Rate [Pulse Oximeter] 83 83 66 Respiratory Rate 16 16 18 Blood Pressure Blood Pressure [Le ft Arm] 98/65 92/58 L Pulse Oximetry 97 98 Oxygen Delivery Me thod Room Air Room Air 05/20/22 19:28 05/20/22 19:35 05/20/22 19:40 Temperature 98.9 F Pulse Rate 59 L 56 L 59 L Pulse Rate [Pulse Oximeter] Respiratory Rate 10 L 14 16 Blood Pressure 102/60 102/55 L 107/65 Blood Pressure [Le ft Arm] Pulse Oximetry 97 97 99 Oxygen Delivery Me thod Room Air Room Air Room Air 05/20/22 19:45 05/20/22 19:50 05/20/22 19:55 Temperature 97.6 F Pulse Rate 58 L 60 61 Pulse Rate [Pulse Oximeter] Respiratory Rate 16 14 14 Blood Pressure 103/61 104/58 L 103/58 L Blood Pressure [Le ft Arm] Pulse Oximetry 99 100 99 Oxygen Delivery Me thod Room Air Room Air Room Air 05/20/22 19:59 05/20/22 20:05 05/20/22 20:15 Temperature 97.4 F L 96.3 F L Pulse Rate 54 L Pulse Rate [Pulse Oximeter] 55 L 58 L Respiratory Rate 12 16 16 Blood Pressure 101/58 L Blood Pressure [Le ft Arm] 99/53 L 96/56 L Pulse Oximetry 98 99 99 Oxygen Delivery Ny thod Room Air Room Air Room Air 05/20/22 20:30 05/20/22 20:45 05/20/22 21:00 Temperature 97.2 F L 97.3 F L Pulse Rate Pulse Rate [Pulse Oximeter] 63 58 L 62 Respiratory Rate 16 16 Blood Pressure Blood Pressure [Le ft Arm] 95/59 L 89/51 L 89/49 L Pulse Oximetry 97 95 94 Oxygen Delivery Ny thod Room Air Room Air Room Air 05/20/22 21:30 05/20/22 22:00 05/20/22 23:00 Temperature 97.5 F L 97.7 F Pulse Rate Pulse Rate [Pulse Oximeter] 62 61 60 Respiratory Rate 16 14 Blood Pressure Blood Pressure [Le ft Arm] 91/56 L 85/53 L 95/52 L Pulse Oximetry 94 95 97 Oxygen Delivery Ny thod Room Air Room Air Room Air 05/21/22 00:00 05/21/22 01:00 05/20/22 23:00 Temperature 98.4 F 98.5 F Pulse Rate Pulse Rate [Pulse Oximeter] 60 65 60 Respiratory Rate 16 16 14 Blood Pressure Blood Pressure [Le ft Arm] 97/59 L 91/50 L Pulse Oximetry 98 96 Oxygen Delivery Ny thod Room Air Room Air 05/21/22 03:00 05/21/22 07:00 Temperature Pulse Rate Pulse Rate [Pulse Oximeter] 65 Respiratory Rate 16 16 Blood Pressure Blood Pressure [Le ft Arm] Pulse Oximetry Oxygen Delivery Ny thod Room Air DS: Data Data Completed and Pending Labs on day of discharge: Labs from last 24 hours 05/21/22 05/20/22 06:38 15:02 Total Bilirubin 0.6 Direct Bilirubin 0.1 AST 28 ALT 20 Alkaline Phosphatase 49 Total Protein 6.4 Albumin 3.7 HCG, Qual Negative Discharge Plan Discharge Disposition: Home, Self-Care Discharging Surgeon: Hector Anderson Follow-Up Appointment: 2 weeks yousufina Prescriptions: New hydrocodone-acetaminophen 5-325 mg tablet 1 tab PO Q6H PRN (Reason: pain) Qty: 30 0RF Activity Level: No strenuous activity Activity Detail: No strenuous activity or lifting more than 15-20 lbs for 4-6 weeks. Discharge Diet: Regular Patient Instructions: General Anesthesia (DC), Laparoscopic Cholecystectomy (DC), Post-Operative Instructions: Laparoscopic Cholecystectomy Forms: Work/School Release Follow-up: Hector Anderson MD [Staff Physician] - Discharge Orders: Discharge Order (Routine); Ordered 05/21/22 Ordered By: Hector Anderson Consulting provider completed their portion of the discharge: Yes
[2022-05-21 11:00] VITALS: BP 90/49; PULSE 81; RESP 18; TEMP 36.8; O2SAT 99
[2022-05-21 11:50] VITALS: BP 90/49; PULSE 81; RESP 18; TEMP 36.8
--- NOTE | 2022-05-21 13:47 | PC.NURSE ---
Nursing Care Hours: [id number] Pt this shift calm and cooperative with cares. Pt tolerating advancing diet, no c/o N/V. Pain increased after physical exam by surgeon, PRN oral pain medication given. Verbal ok from surgeon to override too early warning and give, instead of going to IV pain meds. Independent in room, 4 lap incisions has scant output on dressing. Otherwise intact, no SS of infection. IV dc'd, discharge instructions provided to pt and SO. Questions regarding wound care answered, pt instructed to leave steri strips on for 24 hours before removing. Pt wheeled out to vehicle in stable condition.
== END 2022-05-21 11:40 | disposition home or self-care (01) ==
LOC: ED 05-20 00:03 → MEDSURG 05-20 07:30 → SS 05-20 16:46 → MEDSURG 05-21 10:04
PROVIDERS: Family Medicine; Emergency Provider Family Medicine; PCP Family Medicine; Visit Provider Surgery
PROC: 0FT44ZZ Resection of Gallbladder, Percutaneous Endoscopic Approach (ICD-10-PCS; CPT 47563; 2022-05-20 16:30)
DX: K80.42 Calculus of bile duct with acute cholecystitis without obstruction (principal); K82.1 Hydrops of gallbladder
CPT/HCPCS: 47563; 00790; 36415; 71045; 74177; 74181; 74300; 76000; 76705; 80053; 80076; 83605; 83690; 84484; 84703; 85025; 87502; 87634; 87635; 88304; 93005; 94761; 99140; 99284; 99285; A9270; J0330; J0690; J1100; J1170; J1200; J1885; J2270; J2405; J2543; J2704; J2710; J3010; J3490; J7050; J7120; Q9967

== ENCOUNTER 2022-05-31 19:04 | Emergency (ER) | payer MEDICAID, SELFPAY ==
[2022-05-31 19:54] VITALS: BP 112/76; PULSE 71; RESP 16; TEMP 36.7; O2SAT 99
--- NOTE | 2022-05-31 20:05 | ED_ITS ---
HPI - General Adult General Time Seen by Provider: 20:05 Date Seen: 05/31/22 Chief complaint: Nausea/Vomiting Stated complaint: galbladder pain Time Seen by Provider: 05/31/22 20:04 Source: patient and RN notes reviewed Mode of arrival: ambulatory Limitations: no limitations History of Present Illness HPI narrative: Patient is a 21-year-old female that had cholecystitis and cholecystectomy on May 20 here in [place]. She states she originally felt better. Nausea has started to return over few days, she is not completely sure. She started having the upper back pain throughout her mid back again maybe in the last 1-2 days. She has not had any vomiting. She tells me she has been able to eat and drink. She states she is having normal bowel movements, no diarrhea, no urinary symptoms. It hurts with breathing in that back area. No fevers or chills. She is worried that something is still going on. Denies any trauma. Related Data Previous Rx's Medication Instructions Recorded hydrocodone 5 mg-acetaminophen 325 1 tab PO Q6H PRN pain #30 tabs 05/21/22 mg tablet cyclobenzaprine 10 mg tablet 10 mg PO TID PRN muscle spasm #10 06/01/22 tabs Allergies Allergy/AdvReac Type Severity Reaction Status Date / Time No Known Drug Allergies Allergy Verified 05/19/22 17:59 Review of Systems Status of ROS: Reports: 10 or more systems reviewed and unremarkable except as noted in History and below [facility] Medical History No significant past medical history Surgical History No significant past surgical history Social History (Updated 05/20/22 @ 14:43 by Marcelo Oreilly MD) Narrative: Family history: No family history of problems with bleeding, clotting or difficulties with anesthesia. Her father has diabetes mellitus. Her younger sister had leukemia. As a sequelae of her leukemia treatment she developed heart failure and received a heart transplant. She does not smoke. She drinks alcohol twice a month. She has no recreational drug use. Her fiancee, Benton, is healthcare power of deputy attorney general. Code status is full. 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 Highest level of school completed/degree received: high school graduate Smoking Status: Never smoker Do you use any of these nicotine containing products: None Second hand tobacco smoke exposure: No How often do you have a drink containing alcohol: monthly or less How often do you have six or more drinks on one occasion: Never AUDIT-C Alcohol total score: 1 Non-prescribed substance use: denies use Caffeine: No service: No Exam Const: Vital Signs, click to edit/add: Vital Signs - 24 hr 05/31/22 19:54 05/31/22 21:15 05/31/22 21:10 Temperature 98.0 F Pulse Rate [Left P ulse Oximeter] 71 64 Respiratory Rate 16 Blood Pressure [Ri ght Upper Arm] 112/76 113/68 Pulse Oximetry 99 100 100 Oxygen Delivery Me thod Room Air Room Air 05/31/22 22:10 06/01/22 00:08 Temperature Pulse Rate [Left P ulse Oximeter] 80 78 Respiratory Rate Blood Pressure [Ri ght Upper Arm] 100/59 L Pulse Oximetry 100 99 Oxygen Delivery Me thod Room Air Room Air Documenting provider has reviewed patient's vital signs: yes Common normals: no apparent distress, average body habitus, oriented x3, no limitations, healthy appearing, alert and well nourished General appearance: cooperative, comfortable, well kempt and well developed HENMT: Common normals: normocephalic, head/scalp atraumatic and hearing grossly normal bilaterally Head and scalp: normocephalic and atraumatic Eye: Common normals: PERRL, EOMs intact bilaterally, conjunctivae normal and no scleral icterus Conjunctiva: conjunctiva(e) normal Pupil: PERRL Neck & C-Spine: Common normals: full ROM, no lymphadenopathy, supple, no meningeal signs, no JVD and thyroid normal Thyroid: thyroid normal Chest: Common normals: inspection of chest normal and palpation of chest normal Resp: Common normals: normal respiratory effort, no retractions, no use of accessory muscles and clear to auscultation bilaterally Auscultation: clear to auscultation bilaterally Cardio: Common normals: no JVD, regular rate, regular rhythm, S1 normal heart sound, S2 normal heart sound, no gallops, no clicks and no murmurs Rate: regular rate Rhythm: regular rhythm Heart sounds: S1 normal and S2 normal GI: Common normals: Normal to inspection, nondistended, normoactive bowel sounds present, soft to palpation, non-tender, no hepatosplenomegaly and no masses Palpation: soft and no hepatosplenomegaly : Common normals: no CVA tenderness Bladder/kidney exam: no CVA tenderness Back & Pelvis: Common normals: no CVA tenderness, thoracic and lumbar spine normal to inspection, no thoracic nor lumbar tenderness, thoraco-lumbar ROM normal and straight leg raise negative bilaterally Neuro: Common normals: oriented x3 Sensorium/orientation: alert Meningeal signs: no meningeal signs Speech: speech normal Gait (neuro): normal gait Psych: Appearance: well kempt Course Course Hospital Course: Will place an IV, give her 4 mg IV Zofran, L of fluids and 15 mg IV Toradol for pain management. Will get a full complement of labs. I will get a chest x-ray just ensure the diaphragms are looking normal no developing pneumonia as a complication of surgery. Complications from her cholecystectomy need to be considered, may need to consider abdominal imaging. Will guide therapy accordingly pending the imaging and labs. Reevaluation(s) Reevaluation #1: Reviewed my conversation with the general surgeon, reviewed her normal labs. She is worried that the back pain is still signifying something going on within her abdomen. Thus, she would like to proceed with CT imaging. Her pain has been completely resolved with the Toradol but note that it was when she was in originally as well. Time: 22:39 Reevaluation #2: Reviewed with patient that there are no acute findings or concerns with her abdominal CT. She has postoperative changes but there is nothing concerning on the imaging. She states she has a few pain pills left from her doctor. I asked if she was doing baseline Tylenol in she stated that it made her epigastric pain worse. When she came in she was talking about back pain issues. Have advised her that she may need to follow up with the surgeon again. Did discuss for her back, we could consider a muscle relaxant. I will send in a few for filler picker at the pharmacy tomorrow. If her back is continuing to bother her, as I have stressed before, recommend re-evaluation and further workup in the clinic. Time: 00:31 Consultations Consultation #1: Spoke with Dr. Anderson the general surgeon on-call who happened to be patient surgeon. Reviewed the case. She had just seen this patient yesterday in clinic. The patient was complaining of some back pain then but was not increased with eating a seem to be positional being that she could not sleep on her abdomen anymore. She examined her back in did not find any pain. She found nothing clinically on exam that was worrisome. I will talk to the patient about imaging her abdomen to re-evaluated ensure that there is no complications. I reviewed the full normal laboratory workup with Dr. Anderson. Time: 22:37 Vital Signs Vital signs: Initial Vital Signs Temperature 98.0 F 05/31/22 19:54 Temperature Source Temporal Artery Scan 05/31/22 19:54 Pulse Rate 71 05/31/22 19:54 Pulse Rhythm 05/31/22 19:54 Pulse Strength 0+ Absent 05/31/22 19:54 Respiratory Rate 16 05/31/22 19:54 Blood Pressure 112/76 05/31/22 19:54 Blood Pressure Mean 88 05/31/22 19:54 Blood Pressure Position Sitting 05/31/22 19:54 Pulse Oximetry 99 05/31/22 19:54 Oxygen Delivery Method 05/31/22 19:54 Vital Signs Temperature 98.0 F 05/31/22 19:54 Pulse Rate 71 05/31/22 19:54 Respiratory Rate 16 05/31/22 19:54 Blood Pressure 112/76 05/31/22 19:54 Pulse Oximetry 99 05/31/22 19:54 Oxygen Delivery Method 05/31/22 19:54 Temperature 98.0 F 05/31/22 19:54 Pulse Rate 78 06/01/22 00:08 Respiratory Rate 16 05/31/22 19:54 Blood Pressure 100/59 L 05/31/22 22:10 Pulse Oximetry 99 06/01/22 00:08 Oxygen Delivery Method 06/01/22 00:08 Medical Decision Making Lab Data Lab results reviewed: Yes I reviewed the patient's lab results Labs: Lab Results 05/31/22 05/31/22 05/31/22 Range/Units 20:17 21:13 21:13 WBC 9.14 (4.50-11.00) K/uL RBC 4.83 (4.00-5.20) m/uL Hgb 13.1 (12.0-16.0) gm/dL Hct 40.9 (33.0-51.0) % MCV 85 (80-100) fL MCH 27 (26-34) pg MCHC 32 (32-36) gm/dL RDW Coeff of [place] 13.0 (11.5-15.5) % Plt Count 310 (140-440) K/uL Neut % (Auto) 58.4 (42.0-72.0) % Lymph % (Auto) 34.5 (20-44) % Shelby % (Auto) 4.6 (0.0-11.0) % Eos % (Auto) 1.9 (0.0-7.0) % Baso % (Auto) 0.5 (0.0-3.0) % Neut # (Auto) 5.34 (1.7-7.0) K/uL Lymph # (Auto) 3.15 H (0.90-2.90) K/uL Shelby # (Auto) 0.40 (0.00-0.90) K/UL Eos # (Auto) 0.17 (0.00-0.50) K/uL Baso # (Auto) 0.05 (0.00-0.30) K/uL Sodium 142 (135-149) mmol/L Potassium 3.7 (3.6-5.1) mmol/L Chloride 106 (96-114) mmol/L Carbon Dioxide 27 (20-32) mmol/L BUN 9 (5-24) mg/dL Creatinine 0.5 (0.5-1.5) mg/dL Estimated GFR 137 ml/min Glucose 109 (60-115) mg/dL Lactate (0.5-1.9) mmol/L Calcium 9.9 (8.4-10.6) mg/dL Total Bilirubin 0.3 (0.1-1.5) mg/dL Direct Bilirubin 0.2 (0.0-0.5) mg/dL AST 26 (12-35) U/L ALT 25 (4-35) U/L Alkaline Phosphatase 60 (40-150) U/L C-Reactive Protein 0.5 (0.5-1.0) mg/dL Total Protein 8.2 (6.0-8.3) g/dL Albumin 4.8 (3.3-5.0) g/dL Lipase 154 (23-300) U/L SARS-CoV-2 (PCR) Negative SARS-CoV-2 (Negative) 05/31/22 Range/Units 21:13 WBC (4.50-11.00) K/uL RBC (4.00-5.20) m/uL Hgb (12.0-16.0) gm/dL Hct (33.0-51.0) % MCV (80-100) fL MCH (26-34) pg MCHC (32-36) gm/dL RDW Coeff of [place] (11.5-15.5) % Plt Count (140-440) K/uL Neut % (Auto) (42.0-72.0) % Lymph % (Auto) (20-44) % Shelby % (Auto) (0.0-11.0) % Eos % (Auto) (0.0-7.0) % Baso % (Auto) (0.0-3.0) % Neut # (Auto) (1.7-7.0) K/uL Lymph # (Auto) (0.90-2.90) K/uL Shelby # (Auto) (0.00-0.90) K/UL Eos # (Auto) (0.00-0.50) K/uL Baso # (Auto) (0.00-0.30) K/uL Sodium (135-149) mmol/L Potassium (3.6-5.1) mmol/L Chloride (96-114) mmol/L Carbon Dioxide (20-32) mmol/L BUN (5-24) mg/dL Creatinine (0.5-1.5) mg/dL Estimated GFR ml/min Glucose (60-115) mg/dL Lactate 0.6 (0.5-1.9) mmol/L Calcium (8.4-10.6) mg/dL Total Bilirubin (0.1-1.5) mg/dL Direct Bilirubin (0.0-0.5) mg/dL AST (12-35) U/L ALT (4-35) U/L Alkaline Phosphatase (40-150) U/L C-Reactive Protein (0.5-1.0) mg/dL Total Protein (6.0-8.3) g/dL Albumin (3.3-5.0) g/dL Lipase (23-300) U/L SARS-CoV-2 (PCR) (Negative) Imaging Data Chest x-ray: Attestation: I have reviewed the pertinent imaging results. My impression: I see no acute pathology on my preliminary review. Radiologist's impression: Patient: ANNMARIE ALMENDAREZ Facility:?[facility] Patient ID:?[id number] Site Patient ID:?[id number]. Site :?[id number] Study:?XRay Chest PORTABLE-05/31/2022 8:37:08 PM Ordering Physician:?Forest Eaton Final Report: INDICATION: Pleuritic pain TECHNIQUE: Chest 1 views COMPARISON: 05/19/2022 single view chest FINDINGS: Cardiovascular and mediastinum: Heart size and vasculature are normal in caliber and appearance. Lungs and pleural spaces: Lungs are clear. No sign of infiltrate or mass. No sign of pleural effusion. No pneumothorax. Bones and soft tissues: No significant findings. IMPRESSION: No acute findings and no significant changes from the prior exam. Dictated by Azar Stephens MD @ 05/31/2022 8:42:55 PM (Electronic Signature) CT scan - abdomen: Attestation: I have reviewed the pertinent imaging results. Radiologist's impression: Patient: ANNMARIE ALMENDAREZ Facility:?[facility] Patient ID:?[id number] Site Patient ID:?[id number]. Site :?[id number] Study:?CT Abdomen/Pelvis -05/31/2022 11:31:55 PM Ordering Physician:?Forest Eaton Final Report: INDICATION: Abdominal pain status post cholecystectomy. TECHNIQUE: CT abdomen and pelvis acquired with 54 cc Isovue 370 IV contrast. COMPARISON: CT abdomen 05/19/2022. FINDINGS: Lower chest: Unremarkable. Liver: Normal in size and attenuation. No suspicious masses. Gallbladder and bile ducts: Interval postsurgical changes of cholecystectomy with small amount of fluid in the gallbladder fossa. No abnormal biliary ductal dilatation. Pancreas: Unremarkable. No mass or inflammation. Spleen: Unremarkable. Normal in size. No masses. Adrenal glands: Unremarkable. No nodules. Kidneys: Unremarkable. No suspicious masses, stones, or hydronephrosis. GI tract: Unremarkable. No evidence for obstruction. No mural thickening. Normal appendix. Vasculature: Abdominal aorta is normal in caliber. Mesenteric arteries are patent. Lymph nodes: No lymphadenopathy. Peritoneum/Abdominal Wall: Small amounts free fluid in the pelvis. No evidence for abscess. No free air Pelvis: IUD in the uterus. Bones: Unremarkable for age. IMPRESSION: Expected postsurgical changes of interval cholecystectomy. Otherwise, no acute findings within the abdomen and pelvis. No evidence for abscess. Small amount of free fluid in the pelvis, likely postsurgical. Please note that all CT scans at this facility use dose modulation, iterative reconstruction, and/or weight-based dosing when appropriate to reduce radiation dose to as low as reasonably achievable. Dictated by Maged Lewis MD @ 06/01/2022 12:11:58 AM (Electronic Signature) Critical Care Time Critical Care Time Critical Care Time: No Discharge Plan Discharge Clinical Impression: Back pain, Status post laparoscopic cholecystectomy Condition: Stable Instructions: Back Pain (ED), Laparoscopic Cholecystectomy (DC) Additional Instructions: Follow postoperative recommendations as outlined by the surgeon. Am sending a prescription for Flexeril which is a muscle relaxant to the pharmacy. You can try this and see if it helps with your back symptoms. This medicine can be sedating, would not recommend operating machinery or driving on it. If you have ongoing symptoms in concerns regarding the surgery, please contact the surgeon. If ongoing back issues, I would highly recommend that you schedule a follow-up in clinic to be further evaluated by a your primary care provider. Prescriptions: New cyclobenzaprine 10 mg tablet 10 mg PO TID PRN (Reason: muscle spasm) Qty: 10 0RF No Action hydrocodone-acetaminophen 5-325 mg tablet 1 tab PO Q6H PRN (Reason: pain) Qty: 30 0RF Follow Up/Referrals: Hanna Worley MD [Primary Care Provider] - Stand Alone Forms: [email or web address] Info Instructions
--- NOTE | 2022-05-31 20:15 | CRLHL7_ITS ---
For Patients: As a result of the Century Cures Act, medical imaging exams and procedure reports are released immediately into your electronic medical record. You may view this report before your referring provider. If you have questions, please contact your health care provider. INDICATION: Pleuritic pain TECHNIQUE: Chest 1 views COMPARISON: 05/19/2022 single view chest FINDINGS: Cardiovascular and mediastinum: Heart size and vasculature are normal in caliber and appearance. Lungs and pleural spaces: Lungs are clear. No sign of infiltrate or mass. No sign of pleural effusion. No pneumothorax. Bones and soft tissues: No significant findings. IMPRESSION: No acute findings and no significant changes from the prior exam. Dictated by Azar Stephens MD @ 05/31/2022 8:42:55 PM (Electronically Signed)
[2022-05-31 21:10] VITALS: BP 113/68; PULSE 64; O2SAT 100
[2022-05-31 21:14] LABS: SARS PCR* Negative SARS-CoV-2 (Negative)
[2022-05-31 21:15] VITALS: O2SAT 100
[2022-05-31 21:19] LABS: Basophils Absolute Auto 0.05 K/uL (0.00-0.30); Basophils Percent Auto 0.5 % (0.0-3.0); Eosinophils Absolute Auto 0.17 K/uL (0.00-0.50); Eosinophils Percent Auto 1.9 % (0.0-7.0); Hematocrit 40.9 % (33.0-51.0); Hemoglobin* 13.1 gm/dL (12.0-16.0); Immature Granulocytes Abs Auto 0.01 K/uL (0.00-0.30); Immature Granulocytes Pct Auto 0.1 %; Lymphocytes Absolute Auto 3.15 K/uL (0.90-2.90); Lymphocytes Percent Auto 34.5 % (20-44); Mean Corpuscular HGB Conc 32 gm/dL (32-36); Mean Corpuscular Hemoglobin 27 pg (26-34); Mean Corpuscular Volume 85 fL (80-100); Monocytes Percent Auto 4.6 % (0.0-11.0); Neutrophils Absolute Auto 5.34 K/uL (1.7-7.0); Neutrophils Percent Auto 58.4 % (42.0-72.0); Platelet Count* 310 K/uL (140-440); Red Blood Count 4.83 m/uL (4.00-5.20); White Blood Count* 9.14 K/uL (4.50-11.00)
[2022-05-31 21:21] LABS: Lactate* 0.6 mmol/L (0.5-1.9)
[2022-05-31] MEDS: 0.9 % SODIUM CHLORIDE 1000 ml 1,000 ML IV (21:28)
[2022-05-31] MEDS: ONDANSETRON 2 MG/ML inj 4 MG IVP (21:30)
[2022-05-31] MEDS: KETOROLAC 15 MG/ML inj IVP (21:32)
[2022-05-31 21:43] LABS: Albumin* 4.8 g/dL (3.3-5.0); Chloride* 106 mmol/L (96-114)
[2022-05-31 21:44] LABS: Potassium* 3.7 mmol/L (3.6-5.1); Sodium* 142 mmol/L (135-149)
[2022-05-31 21:46] LABS: Creatinine* 0.5 mg/dL (0.5-1.5); Estimated Glomerular Filt Rate 137 ml/min
[2022-05-31 21:47] LABS: Alanine Aminotransferase* 25 U/L (4-35); Alkaline Phosphatase* 60 U/L (40-150); Aspartate Amino Transferase* 26 U/L (12-35); Bilirubin Direct* 0.2 mg/dL (0.0-0.5); Bilirubin Total* 0.3 mg/dL (0.1-1.5); Blood Urea Nitrogen* 9 mg/dL (5-24); Calcium* 9.9 mg/dL (8.4-10.6); Carbon Dioxide* 27 mmol/L (20-32); Glucose* 109 mg/dL (60-115); Lipase* 154 U/L (23-300); Total Protein* 8.2 g/dL (6.0-8.3)
[2022-05-31 21:49] LABS: C Reactive Protein* 0.5 mg/dL (0.5-1.0)
[2022-05-31 22:10] VITALS: BP 100/59; PULSE 80; O2SAT 100
[2022-05-31 22:20] LABS: Slide Review Reflex No
--- NOTE | 2022-05-31 23:02 | CRLHL7_ITS ---
For Patients: As a result of the Cures Act, medical imaging exams and procedure reports are released immediately into your electronic medical record. You may view this report before your referring provider. If you have questions, please contact your health care provider. INDICATION: Abdominal pain status post cholecystectomy. TECHNIQUE: CT abdomen and pelvis acquired with 54 cc Isovue 370 IV contrast. COMPARISON: CT abdomen 05/19/2022. FINDINGS: Lower chest: Unremarkable. Liver: Normal in size and attenuation. No suspicious masses. Gallbladder and bile ducts: Interval postsurgical changes of cholecystectomy with small amount of fluid in the gallbladder fossa. No abnormal biliary ductal dilatation. Pancreas: Unremarkable. No mass or inflammation. Spleen: Unremarkable. Normal in size. No masses. Adrenal glands: Unremarkable. No nodules. Kidneys: Unremarkable. No suspicious masses, stones, or hydronephrosis. GI tract: Unremarkable. No evidence for obstruction. No mural thickening. Normal appendix. Vasculature: Abdominal aorta is normal in caliber. Mesenteric arteries are patent. Lymph nodes: No lymphadenopathy. Peritoneum/Abdominal Wall: Small amounts free fluid in the pelvis. No evidence for abscess. No free air Pelvis: IUD in the uterus. Bones: Unremarkable for age. IMPRESSION: Expected postsurgical changes of interval cholecystectomy. Otherwise, no acute findings within the abdomen and pelvis. No evidence for abscess. Small amount of free fluid in the pelvis, likely postsurgical. Please note that all CT scans at this facility use dose modulation, iterative reconstruction, and/or weight-based dosing when appropriate to reduce radiation dose to as low as reasonably achievable. Dictated by Maged Lewis MD @ 06/01/2022 12:11:58 AM (Electronically Signed)
[2022-06-01 00:08] VITALS: PULSE 78; O2SAT 99
[2022-06-01 00:53] VITALS: BP 100/65; PULSE 78; RESP 18; O2SAT 99
== END 2022-06-01 00:54 | disposition home or self-care (01) ==
PROVIDERS: Emergency Provider Family Medicine; PCP Family Medicine
DX: M54.9 Dorsalgia, unspecified (principal); G89.18 Other acute postprocedural pain
CPT/HCPCS: 36415; 71045; 74177; 80048; 80076; 83605; 83690; 85025; 86140; 87635; 94761; 96374; 96375; 99284; 99285; J1885; J2405; J7030; Q9967

== ENCOUNTER 2022-06-08 17:46 | Emergency (ER) | payer MEDICAID, SELFPAY ==
[2022-06-08 17:49] VITALS: BP 115/78; PULSE 115; RESP 16; TEMP 36.8; O2SAT 99; BMI 42.2
--- NOTE | 2022-06-08 18:21 | PC.NURSE ---
pt parents pulled admissions aside and asked for a social work msw to speak to them as they have concerns about their daughter and her safety, per parents (who live in [place]) she has been calling them and asking them to come home and has done this more that once, she told them that she is told she can go but she will be going alone, pt and boyfriend have a child together and live with his parents in [place], pt father is Jose A Miller [phone], mother is Meena Velazquez [phone], pt parents aware there is no social work msw here at this time but will leave a message for social work, did tell parents to reach out to police if they have immediate concerns about their daughter's safety, did take pt to bathroom alone without boyfriend and asked her is she felt safe at her home, she states, yes asked if she felt safe with her boyfriend and she states, yes
[2022-06-08 18:24] LABS: Appearance Urine Clear (Clear); Bilirubin Urine 2+ (Negative); Blood Urine 2+ (Negative); Color Urine Yellow (Yellow); Glucose Urine Negative (Negative); Ketones Urine 4+ (Negative); Leukocyte Esterase Urine Trace (Negative); Nitrite Urine Negative (Negative); Protein Urine 2+ (Negative)
[2022-06-08 18:26] LABS: pH Urine >= 9.0 (5.0-8.5)
--- NOTE | 2022-06-08 18:29 | ED.NURSE ---
At triage this nurse noted that boyfriend talked over patient and did not let her answer her own questions. At the service desk specialist boyfriend stated I will interpret in Iraqi for my fiance. This nurse noted in room, pt spoke perfect Indonesian.
[2022-06-08 18:31] LABS: Bacteria Urine Few; Squamous Epithelial Cell Urine Few (None-Few)
[2022-06-08 18:32] LABS: Amorphous Sediment Urine Many; HCG Qualitative* Negative (Negative)
[2022-06-08 18:37] VITALS: BP 111/73; PULSE 102; O2SAT 98
--- NOTE | 2022-06-08 19:02 | ED_ITS ---
HPI - General Adult General Chief complaint: Post Op Complication Stated complaint: Post surgical Chest and Back Pain Time Seen by Provider: 06/08/22 17:49 History of Present Illness HPI narrative: This patient comes in reporting chest discomfort and back discomfort since having a cholecystectomy done about 3 weeks ago. She states that this discomfort is worse when taking a deep breath. She also has trouble sleeping at night because it is difficult to get comfortable. She does not report abdominal pain per se. She has some mild discomfort at her surgical sites but these appear normal. She was seen a week ago with similar complaints and had labs done and a CT scan of the abdomen and pelvis. These results returned with normal findings at that time. She does not report any fevers or cough. She was prescribed narcotic pain medicine postoperatively but states that she has not been taking this because it made her constipated. Related Data Previous Rx's Medication Instructions Recorded hydrocodone 5 mg-acetaminophen 325 1 tab PO Q6H PRN pain #30 tabs 05/21/22 mg tablet cyclobenzaprine 10 mg tablet 10 mg PO TID PRN muscle spasm #10 06/01/22 tabs ketorolac 10 mg tablet 10 mg PO Q8H 5 days #15 tabs 06/08/22 Allergies Allergy/AdvReac Type Severity Reaction Status Date / Time No Known Drug Allergies Allergy Verified 06/08/22 17:49 Review of Systems Status of ROS: Reports: 10 or more systems reviewed and unremarkable except as noted in History and below Narrative: Constitutional: No fevers, no weight gain or loss. Eyes: No discharge. No vision changes. HENT: No congestion, no sore throat, no ear pain. Cardiovascular: No palpitations. Chest: Back pain and chest discomfort that is reproducible with certain movements and with taking deep breaths. Respiratory: No shortness of breath, no wheezes, no cough. Gastrointestinal: Mild abdominal pain, no vomiting, no diarrhea. She does report some nausea. Genitourinary: No dysuria, no hematuria. Musculoskeletal: Normal range of motion. Skin: No rashes, no pruritis. Neurological: No dizziness, weakness, sensory change, speech change. Endo/Heme/Allergies: No bruising or bleeding. No polydipsia. Pysch: no suicidality, no anxiety, no insomnia. All other systems reviewed and are negative. [facility] Medical History No significant past medical history Surgical History No significant past surgical history Social History (Updated 05/20/22 @ 14:43 by Marcelo Oreilly MD) Narrative: Family history: No family history of problems with bleeding, clotting or difficulties with anesthesia. Her father has diabetes mellitus. Her younger sister had leukemia. As a sequelae of her leukemia treatment she developed heart failure and received a heart transplant. She does not smoke. She drinks alcohol twice a month. She has no recreational drug use. Her fiancee, Benton, is healthcare power of immigration attorney. Code status is full. 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 Highest level of school completed/degree received: high school graduate Smoking Status: Never smoker Do you use any of these nicotine containing products: None Second hand tobacco smoke exposure: No How often do you have a drink containing alcohol: monthly or less How often do you have six or more drinks on one occasion: Never AUDIT-C Alcohol total score: 1 Non-prescribed substance use: denies use Caffeine: No service: No Exam Narrative: Exam Narrative: Constitutional: Well-developed, well-nourished, no acute distress. HEENT: Normocephalic, atraumatic. Neck: Normal range of motion. Nontender. Supple. Heart: Regular. No murmurs. Tachycardia, rate 102 beats per minute. Intact distal pulses. Lungs: Clear to auscultation. No chest discomfort. No wheezes, rhonchi, or rales. Abdomen: Normal bowel sounds. Laparoscopic surgical scars appear normal without sign of infection. Mild abdominal discomfort. No rebound tenderness. Genitalia: Deferred. Back: No midline tenderness. Normal range of motion. Extremities: Normal range of motion. No injury. Skin: Intact. No rash. Warm. No erythema or pallor. Neurologic: No altered sensation. No weakness. Alert and oriented. Psychiatric: No suicidality. No anxiety or depression. No insomnia. Nursing notes and vitals signs are reviewed. Const: Vital Signs, click to edit/add: Vital Signs - 24 hr 06/08/22 17:49 06/08/22 18:37 Temperature 98.2 F Pulse Rate [Pulse Oximeter] 115 H 102 H Respiratory Rate 16 Blood Pressure [Ri ght Upper Arm] 115/78 111/73 Pulse Oximetry 99 98 Oxygen Delivery Me thod Room Air Room Air Course Vital Signs Vital signs: Initial Vital Signs Temperature 98.2 F 06/08/22 17:49 Temperature Source Temporal Artery Scan 06/08/22 17:49 Pulse Rate 115 H 06/08/22 17:49 Pulse Rhythm 06/08/22 17:49 Pulse Strength 3+ Normal 06/08/22 17:49 Respiratory Rate 16 06/08/22 17:49 Blood Pressure 115/78 06/08/22 17:49 Blood Pressure Mean 90 06/08/22 17:49 Blood Pressure Position Sitting 06/08/22 17:49 Pulse Oximetry 99 06/08/22 17:49 Oxygen Delivery Method 06/08/22 17:49 Vital Signs Temperature 98.2 F 06/08/22 17:49 Pulse Rate 115 H 06/08/22 17:49 Respiratory Rate 16 06/08/22 17:49 Blood Pressure 115/78 06/08/22 17:49 Pulse Oximetry 99 06/08/22 17:49 Oxygen Delivery Method 06/08/22 17:49 Temperature 98.2 F 06/08/22 17:49 Pulse Rate 102 H 06/08/22 18:37 Respiratory Rate 16 06/08/22 17:49 Blood Pressure 111/73 06/08/22 18:37 Pulse Oximetry 98 06/08/22 18:37 Oxygen Delivery Method 06/08/22 18:37 Medical Decision Making MDM Narrative Medical decision making narrative: This patient has reproducible chest and back discomfort when taking a deep breath and with certain movements. This is suggestive of chest wall pain. Her exam is otherwise normal except for some mild abdominal pain status post cholecystectomy. Bedside ultrasound of the abdomen in the right upper quadrant shows no abnormalities. This patient is much more likely encountering chest wall pain that may have occurred as she was unconscious during surgery laying on the table. Her pain is reproducible with deep breath and with certain movements. I did review CT of the abdomen and pelvis done a week ago along with lab results. These returned with negative findings. There is no reason to repeat this today based on her exam and history and current vital signs. The patient did receive a rib belt and a intramuscular injection of Toradol 30 mg. I did provide a prescription also for Toradol. Lab Data Labs: Lab Results 06/08/22 Range/Units 18:05 HCG, Qual Negative (Negative) Urine Color Yellow (Yellow) Urine Appearance Clear (Clear) Urine pH >= 9.0 H (5.0-8.5) Ur Specific [place] 1.020 (1.000-1.030) Urine Protein 2+ A (Negative) Urine Glucose (UA) Negative (Negative) Urine Ketones 4+ A (Negative) Urine Blood 2+ A (Negative) Urine Nitrite Negative (Negative) Urine Bilirubin 2+ A (Negative) Urine Urobilinogen 1.0 (0.2-1.0) Ur Leukocyte Esterase Trace A (Negative) Urine RBC 5-10 A (0-2) Urine WBC 5-10 A (0-5) Ur Squamous Epith Cells Few (None-Few) Amorphous Sediment Many A (None) Urine Bacteria Few A (None) Discharge Plan Discharge Clinical Impression: Acute chest wall pain Patient Disposition: Home, Self-Care Condition: Stable Prescriptions: New ketorolac 10 mg tablet 10 mg PO Q8H 5 Days Qty: 15 0RF No Action hydrocodone-acetaminophen 5-325 mg tablet 1 tab PO Q6H PRN (Reason: pain) Qty: 30 0RF cyclobenzaprine 10 mg tablet 10 mg PO TID PRN (Reason: muscle spasm) Qty: 10 0RF Follow Up/Referrals: Hanna Worley MD [Primary Care Provider] - Stand Alone Forms: [facility] Info Instructions Procedures Ultrasound Biliary exam #1: Indications: RUQ/epigastric pain Exam type: limited abdominal ultrasound; RUQ Description/Findings: Right kidney, liver, IVC, and aorta appear normal. Gallbladder is surgically absent with no sign of fluid collection. Normal exam.
[2022-06-08] MEDS: KETOROLAC 30 MG/ML inj IM (19:20)
[2022-06-08 19:24] VITALS: BP 115/76; PULSE 98; O2SAT 98
--- NOTE | 2022-06-09 16:18 | PC.SOCIAL ---
Websphere Developer: TC placed to father to provide requested contact information for [facility] per RN note. Voicemail box was not set up, so information was not able to be relayed at this time.
== END 2022-06-08 19:30 | disposition home or self-care (01) ==
PROVIDERS: Emergency Provider Emergency Medicine Emergency Medical Services; PCP Family Medicine
DX: R07.89 Other chest pain (principal)
CPT/HCPCS: 76705; 81001; 84703; 87086; 96372; 99283; 99284; J1885

== ENCOUNTER 2022-10-07 12:09 | Emergency (ER) | payer MEDICAID, SELFPAY ==
[2022-10-07 12:18] VITALS: BP 94/62; PULSE 72; RESP 16; TEMP 36.3; O2SAT 99; BMI 21.7
[2022-10-07 13:15] VITALS: BP 105/52
--- NOTE | 2022-10-07 13:16 | ED.GENADULT ---
HPI - General Adult General Time Seen by Provider: 13:16 Date Seen: 10/07/22 Chief complaint: Vaginal Bleeding Stated complaint: vaginal bleeding Time Seen by Provider: 10/07/22 13:14 Source: patient, RN notes reviewed and old records reviewed Mode of arrival: ambulatory Limitations: no limitations History of Present Illness HPI narrative: 21-year-old female who presents today with vaginal bleeding. Patient notes 3 days of heavier than usual vaginal bleeding. Last period ended September 16, at that time she had her IUD removed and an Implanon placed. Bleeding started 2 days ago, she did not have any spotting between placement of her and plan on and now. Some low abdominal cramping. Denies shortness of breath but does note some lightheadedness. Related Data Previous Rx's Medication Instructions Recorded hydrocodone 5 mg-acetaminophen 325 1 tab PO Q6H PRN pain #30 tabs 05/21/22 mg tablet cyclobenzaprine 10 mg tablet 10 mg PO TID PRN muscle spasm #10 06/01/22 tabs ketorolac 10 mg tablet 10 mg PO Q8H 5 days #15 tabs 06/08/22 Allergies Allergy/AdvReac Type Severity Reaction Status Date / Time No Known Drug Allergies Allergy Verified 10/07/22 12:24 PFSH PFSH Medical History No significant past medical history Surgical History No significant past surgical history Social History (Updated 05/20/22 @ 14:43 by Marcelo Oreilly MD) Narrative: Family history: No family history of problems with bleeding, clotting or difficulties with anesthesia. Her father has diabetes mellitus. Her younger sister had leukemia. As a sequelae of her leukemia treatment she developed heart failure and received a heart transplant. She does not smoke. She drinks alcohol twice a month. She has no recreational drug use. Her fiancee, Benton, is healthcare power of contracts attorney. Code status is full. 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 Highest level of school completed/degree received: high school graduate Smoking Status: Never smoker Do you use any of these nicotine containing products: None Second hand tobacco smoke exposure: No How often do you have a drink containing alcohol: monthly or less How often do you have six or more drinks on one occasion: Never AUDIT-C Alcohol total score: 1 Non-prescribed substance use: denies use Caffeine: No service: No Exam Narrative: Exam Narrative: General: Well-developed and well-nourished, no acute distress Head: Atraumatic and normocephalic Eyes: Pupils are equal reactive, extraocular motions intact, conjunctiva clear ENT: External nose and ears are normal, posterior pharynx without erythema or exudate Neck: No midline cervical tenderness, full spontaneous range of motion the neck, trachea midline, no adenopathy Heart: Regular rate and rhythm no murmurs or thrills Lungs: Clear to auscultation bilaterally without wheezes or crackles Abdomen: Soft, nontender, nondistended with active bowel sounds Musculoskeletal: No tenderness, deformity, or edema Neurologic: Awake, alert, and oriented x3, no gross focal neurologic deficits, cranial nerves intact as tested Psych: Mood and affect are appropriate Skin: No rashes Const: Vital Signs, click to edit/add: Vital Signs - 24 hr 10/07/22 12:18 10/07/22 13:15 10/07/22 15:15 Temperature 97.3 F L Pulse Rate [Pulse Oximeter] 72 60 Respiratory Rate 16 Blood Pressure [Ri ght Upper Arm] 94/62 105/52 L 103/56 L Pulse Oximetry 99 100 Oxygen Delivery Me thod Room Air Room Air Documenting provider has reviewed patient's vital signs: yes Course Course Hospital Course: Patient seen and examined, prior records are reviewed. Patient presents with 3 days of heavier than usual vaginal bleeding, some lightheadedness. Some lower abdominal cramping. On exam here, hypotensive but stable for patient, no pallor, minimal suprapubic tenderness. Labs independently interpreted by me demonstrate normal hemoglobin. Pelvic ultrasound is ordered along with test although likelihood of is low. Reevaluation(s) Time of Reevaluation #1: 15:24 Reevaluation #1: Labs independently interpreted by me demonstrate negative test, urinalysis with blood and contaminated with squamous cells but not indicative infection. Pelvic ultrasound independently interpreted by me demonstrates thin endometrial stripe, normal appearing ovaries bilaterally. Patient is stable for discharge with follow-up. Given that she has only had 3 days of bleeding and has been changing hormonal contraceptives recently, would not initiate Provera challenge and less bleeding continued. Vital Signs Vital signs: Initial Vital Signs Temperature 97.3 F L 10/07/22 12:18 Temperature Source Temporal Artery Scan 10/07/22 12:18 Pulse Rate 72 10/07/22 12:18 Pulse Rhythm Regular 10/07/22 12:18 Respiratory Rate 16 10/07/22 12:18 Blood Pressure 94/62 10/07/22 12:18 Blood Pressure Mean 72 10/07/22 12:18 Pulse Oximetry 99 10/07/22 12:18 Oxygen Delivery Method Room Air 10/07/22 12:18 Vital Signs Temperature 97.3 F L 10/07/22 12:18 Pulse Rate 72 10/07/22 12:18 Respiratory Rate 16 10/07/22 12:18 Blood Pressure 94/62 10/07/22 12:18 Pulse Oximetry 99 10/07/22 12:18 Oxygen Delivery Method Room Air 10/07/22 12:18 Temperature 97.3 F L 10/07/22 12:18 Pulse Rate 60 10/07/22 15:15 Respiratory Rate 16 10/07/22 12:18 Blood Pressure 103/56 L 10/07/22 15:15 Pulse Oximetry 100 10/07/22 15:15 Oxygen Delivery Method Room Air 10/07/22 15:15 Medical Decision Making Lab Data Labs: Lab Results 10/07/22 10/07/22 Range/Units 13:12 13:50 WBC 4.93 (4.50-11.00) K/uL RBC 4.93 (4.00-5.20) m/uL Hgb 13.2 (12.0-16.0) gm/dL Hct 41.8 (33.0-51.0) % MCV 85 (80-100) fL MCH 27 (26-34) pg MCHC 32 (32-36) gm/dL RDW Coeff of [place] 12.6 (11.5-15.5) % Plt Count 236 (140-440) K/uL Neut % (Auto) 56.8 (42.0-72.0) % Lymph % (Auto) 34.9 (20-44) % [place] % (Auto) 5.7 (0.0-11.0) % Eos % (Auto) 1.8 (0.0-7.0) % Baso % (Auto) 0.6 (0.0-3.0) % Neut # (Auto) 2.80 (1.7-7.0) K/uL Lymph # (Auto) 1.72 (0.90-2.90) K/uL [place] # (Auto) 0.30 (0.00-0.90) K/UL Eos # (Auto) 0.09 (0.00-0.50) K/uL Baso # (Auto) 0.03 (0.00-0.30) K/uL HCG, Qual Negative (Negative) Urine Color [place] A (Yellow) Urine Appearance Cloudy A (Clear) Urine pH 6.0 (5.0-8.5) Ur Specific [place] 1.025 (1.000-1.030) Urine Protein 1+ A (Negative) Urine Glucose (UA) Negative (Negative) Urine Ketones Negative (Negative) Urine Blood 3+ A (Negative) Urine Nitrite Negative (Negative) Urine Bilirubin Negative (Negative) Urine Urobilinogen 0.2 (0.2-1.0) Ur Leukocyte Esterase Negative (Negative) Urine RBC >100 A (0-2) Urine WBC 5-10 A (0-5) Ur Squamous Epith Cells Moderate A (None-Few) Urine Bacteria Moderate A (None) Discharge Plan Discharge Clinical Impression: Menorrhagia Patient Disposition: Home, Self-Care Condition: Stable Instructions: Menorrhagia (ED) Additional Instructions: Follow-up with your regular doctor in 5-7 days Activity Level: No Restrictions Discharge Diet: Regular Prescriptions: No Action hydrocodone-acetaminophen 5-325 mg tablet 1 tab PO Q6H PRN (Reason: pain) Qty: 30 0RF cyclobenzaprine 10 mg tablet 10 mg PO TID PRN (Reason: muscle spasm) Qty: 10 0RF ketorolac 10 mg tablet 10 mg PO Q8H 5 Days Qty: 15 0RF Follow Up/Referrals: Hanna Worley MD [Primary Care Provider] - Stand Alone Forms: [facility] Info Instructions
[2022-10-07 13:23] LABS: Basophils Absolute Auto 0.03 K/uL (0.00-0.30); Basophils Percent Auto 0.6 % (0.0-3.0); Eosinophils Absolute Auto 0.09 K/uL (0.00-0.50); Eosinophils Percent Auto 1.8 % (0.0-7.0); Hematocrit 41.8 % (33.0-51.0); Hemoglobin* 13.2 gm/dL (12.0-16.0); Immature Granulocytes Abs Auto 0.01 K/uL (0.00-0.30); Immature Granulocytes Pct Auto 0.2 %; Lymphocytes Absolute Auto 1.72 K/uL (0.90-2.90); Lymphocytes Percent Auto 34.9 % (20-44); Mean Corpuscular HGB Conc 32 gm/dL (32-36); Mean Corpuscular Hemoglobin 27 pg (26-34); Mean Corpuscular Volume 85 fL (80-100); Monocytes Percent Auto 5.7 % (0.0-11.0); Neutrophils Percent Auto 56.8 % (42.0-72.0); Platelet Count* 236 K/uL (140-440); RDW Coefficient of Variation % 12.6 % (11.5-15.5); Red Blood Count 4.93 m/uL (4.00-5.20); White Blood Count* 4.93 K/uL (4.50-11.00)
[2022-10-07 13:25] LABS: Slide Review Reflex No
--- NOTE | 2022-10-07 13:29 | CRLHL7_ITS ---
For Patients: As a result of the Century Cures Act, medical imaging exams and procedure reports are released immediately into your electronic medical record. You may view this report before your referring provider. If you have questions, please contact your health care provider. INDICATION: Abnormal bleeding. TECHNIQUE: Ultrasound pelvis transabdominal and transvaginal for better assessment or to better visualize the endometrium. Real-time sonographic images with spectral and color Doppler imaging of the ovaries were obtained. COMPARISON: None. FINDINGS: Uterus: 8.5 x 3.5 x 4.6 cm. Normal echotexture of the myometrium. No masses. Endometrium: Transvaginal imaging was performed to better evaluate the endometrium. Endometrial thickness measures 2 mm. No sign of endometrial mass or fluid. Right ovary 3.4 x 2.0 x 1.9 centimeters. Left ovary 2.8 x 1.5 x 1.8 centimeters. No ovarian or adnexal masses. Normal arterial and venous blood flow is demonstrated in both ovaries. Cul-de-sac: No significant free fluid. IMPRESSION: Unremarkable pelvic ultrasound for age. Dictated by Jaguar Sexton MD @ 10/07/2022 3:27:36 PM (Electronically Signed)
[2022-10-07 13:53] LABS: HCG Qualitative Serum* Negative (Negative)
[2022-10-07] MEDS: 0.9 % SODIUM CHLORIDE 1000 ml 1,000 ML IV (14:00)
[2022-10-07 14:07] LABS: Appearance Urine Cloudy (Clear); Bilirubin Urine Negative (Negative); Blood Urine 3+ (Negative); Color Urine Orange (Yellow); Glucose Urine Negative (Negative); Ketones Urine Negative (Negative); Leukocyte Esterase Urine Negative (Negative); Nitrite Urine Negative (Negative); Protein Urine 1+ (Negative); Specific Gravity Urine 1.025 (1.000-1.030); Urobilinogen Urine 0.2 (0.2-1.0)
[2022-10-07 14:33] LABS: Bacteria Urine Moderate; RBC Urine >100 (0-2); Squamous Epithelial Cell Urine Moderate (None-Few)
[2022-10-07 15:15] VITALS: BP 103/56; PULSE 60; O2SAT 100
== END 2022-10-07 15:38 | disposition home or self-care (01) ==
PROVIDERS: Emergency Provider Family Medicine; PCP Family Medicine
DX: N92.0 Excessive and frequent menstruation with regular cycle (principal)
CPT/HCPCS: 36415; 76830; 76856; 81001; 84703; 85025; 87086; 96360; 99284; J7030

== ENCOUNTER 2023-01-15 00:45 | Emergency (ER) | payer OTHER, SELFPAY ==
[2023-01-15 01:38] VITALS: BP 100/67; PULSE 67; RESP 18; TEMP 36.8; O2SAT 98; BMI 22.7
--- NOTE | 2023-01-15 02:48 | ED_ITS ---
HPI - Skin/Abscess/Foreign Bdy General Date Seen: 01/15/23 Chief complaint: Skin/Abscess/Foreign Body Stated complaint: skin iritation Time Seen by Provider: 01/15/23 01:50 Source: patient and family Mode of arrival: ambulatory Limitations: no limitations History of Present Illness HPI narrative: Patient is a 22-year-old female presents with her , she has had a rash now for 4-5 months and seen a couple different physicians for this using some creams of which she has no idea which she is using. She says tonight the rash is been burning, and came into the ER. She notes the it is really not different than at any time before. complaint: rash Location: head Treatments prior to arrival: OTC topical medication and corticosteroid Related Data Previous Rx's Medication Instructions Recorded ketorolac 10 mg tablet 10 mg PO Q8H 5 days #15 tabs 06/08/22 triamcinolone acetonide 0.1 % 1 applic topical DAILY #30 grams 01/15/23 topical cream Allergies Allergy/AdvReac Type Severity Reaction Status Date / Time No Known Drug Allergies Allergy Verified 10/07/22 12:24 Review of Systems Status of ROS: Reports: 10 or more systems reviewed and unremarkable except as noted in History and below [facility] Medical History No significant past medical history Surgical History No significant past surgical history Social History Narrative: Family history: No family history of problems with bleeding, clotting or difficulties with anesthesia. Her father has diabetes mellitus. Her younger sister had leukemia. As a sequelae of her leukemia treatment she developed heart failure and received a heart transplant. She does not smoke. She drinks alcohol twice a month. She has no recreational drug use. Her fiancee, Benton, is healthcare power of deputy county attorney. Code status is full. 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 Highest level of school completed/degree received: high school graduate Smoking Status: Never smoker Do you use any of these nicotine containing products: None Second hand tobacco smoke exposure: No How often do you have a drink containing alcohol: monthly or less How often do you have six or more drinks on one occasion: Never AUDIT-C Alcohol total score: 1 Non-prescribed substance use: denies use Caffeine: No service: No Exam Narrative: Exam Narrative: On examination she has some irritation violaceous lichenification lesions on her hairline posterior, also noted on her elbows and knees. This all seems like eczema. For the most part but psoriasis also is possible. Const: Vital Signs, click to edit/add: Vital Signs - 24 hr 01/15/23 01:38 Temperature 98.3 F Pulse Rate [Pulse Oximeter] 67 Respiratory Rate 18 Blood Pressure [Ri ght Upper Arm] 100/67 Pulse Oximetry 98 Oxygen Delivery Me thod Room Air Documenting provider has reviewed patient's vital signs: yes Course Vital Signs Vital signs: Initial Vital Signs Temperature 98.3 F 01/15/23 01:38 Temperature Source Oral 01/15/23 01:38 Pulse Rate 67 01/15/23 01:38 Respiratory Rate 18 01/15/23 01:38 Blood Pressure 100/67 01/15/23 01:38 Blood Pressure Mean 78 01/15/23 01:38 Pulse Oximetry 98 01/15/23 01:38 Oxygen Delivery Method Room Air 01/15/23 01:38 Vital Signs Temperature 98.3 F 01/15/23 01:38 Pulse Rate 67 01/15/23 01:38 Respiratory Rate 18 01/15/23 01:38 Blood Pressure 100/67 01/15/23 01:38 Pulse Oximetry 98 01/15/23 01:38 Oxygen Delivery Method Room Air 01/15/23 01:38 Temperature 98.3 F 01/15/23 01:38 Pulse Rate 67 01/15/23 01:38 Respiratory Rate 18 01/15/23 01:38 Blood Pressure 100/67 01/15/23 01:38 Pulse Oximetry 98 01/15/23 01:38 Oxygen Delivery Method Room Air 01/15/23 01:38 MDM - Skin/Abscess/Foreign Bdy MDM Narrative Medical decision making narrative: I explained to them that I am an ER physician and do not know this rash ,I recommend Dermatology, I think increasing cream that she may be on already, something like triamcinolone cream would be helpful, but she really needs to see Dermatology. Medical Records Attestation: I reviewed the patient's medical records. Discharge Plan Discharge Clinical Impression: Rash Patient Disposition: Home w/ Parent or Adult Condition: Stable Instructions: Contact Dermatitis (DC), Acute Rash (ED), Cold Compress or Soak (ED) Additional Instructions: It looks like either psoriasis or possibly eczema. Either 1 her usually responsive to steroid creams, would suggest the triamcinolone cream. Use this twice daily, but strongly suggest follow-up with dermatology. Local dermatologists is Disha gonzalez I believe we have dermatology at [facility]. Activity Level: No Restrictions Prescriptions: New triamcinolone acetonide 0.1 % cream 1 applic topical DAILY Qty: 30 0RF No Action ketorolac 10 mg tablet 10 mg PO Q8H 5 Days Qty: 15 0RF Follow Up/Referrals: Hanna Worley MD [Primary Care Provider] - Stand Alone Forms: [employer] Info Instructions
== END 2023-01-15 02:37 | disposition home or self-care (01) ==
LOC: ED 02:14
PROVIDERS: Emergency Provider Family Medicine; PCP Family Medicine
DX: R21 Rash and other nonspecific skin eruption (principal)
CPT/HCPCS: 99283